=== PATIENT | female | born 1980 | race Caucasian/White ===

== ENCOUNTER 2022-03-16 14:32 | Outpatient (REF) | payer MEDICAID, SELFPAY ==
--- NOTE | ~2022-03-16 | XR_ITS ---
EXAMINATION: XR CHEST CLINICAL INFORMATION: R07.9 - Chest pain, unspecified COMPARISON: Chest radiographs 03/20/2020, 04/21/2012 TECHNIQUE: 2 views of the chest were obtained. FINDINGS: The lungs are clear. There is no pneumothorax, pleural reaction, airspace opacity, or effusion. The heart is normal in size. The hilar and mediastinal contours and bony structures are unremarkable. XR/XR chest 2V IMPRESSION: Unremarkable examination.
[2022-03-16 14:49] LABS: MANUAL DIFF FLAG NO
[2022-03-16 15:15] LABS: Basophils Percent Auto 0.3 % (0-2); Eosinophils Absolute Auto 0.1 X10*3/uL (0.0-0.4); Eosinophils Percent Auto 1.1 % (0-4); Hematocrit 38.4 % (37.0-47.0); Hemoglobin 12.9 g/dl (12.0-16.0); Imm Gran Abs Auto 0.02 X10*3/uL (0.00-0.03); Imm Gran Pct Auto 0.3 % (0.0-0.4); Lymphocytes Absolute Auto 1.9 X10*3/uL (1.2-4.9); Lymphocytes Percent Auto 25.3 % (20-40); Mean Corpuscular HGB Conc 33.6 g/dl (31.0-35.0); Mean Corpuscular Hemoglobin 31.2 pg (27.0-33.0); Mean Corpuscular Volume 92.8 fL (80.0-98.0); Mean Platelet Volume 10.8 fL (9.4-12.3); Monocytes Absolute Auto 0.4 X10*3/uL (0.1-1.2); Monocytes Percent Auto 5.9 % (2-11); Neutrophils Absolute Auto 4.9 x10*3/uL (2.0-8.3); Neutrophils Percent Auto 67.1 % (45-73); Platelet Count 317 X10*3/uL (160-400); Red Blood Count 4.14 X10*6/uL (4.20-5.50); Red Cell Distribution Width 12.5 % (11.0-16.0); White Blood Count 7.3 X10*3/uL (4.8-10.8)
[2022-03-16 15:24] LABS: D Dimer High Sensitivity < 150 NG/ML
[2022-03-16 15:47] LABS: Alanine Aminotransferase 16 U/L (0-31); Albumin Level 4.2 g/dL (3.5-5.0); Alkaline Phosphatase 39 U/L (39-117); Anion Gap 15 (12-20); Aspartate Amino Transferase 12 U/L (5-31); Bilirubin Direct 0.2 mg/dL (0.0-0.5); Bilirubin Total 0.6 mg/dL (0.0-1.0); Blood Urea Nitrogen 7 mg/dL (9-16); Calcium 9.7 mg/dL (8.4-10.2); Carbon Dioxide 23 mmol/L (22-29); Chloride 105 mmol/L (96-108); Estimated Glomerular Filt Rate > 60; Glucose Random 107 mg/dL (60-115); Potassium 4.2 mmol/L (3.3-5.1); Sodium 139 mmol/L (135-145); Total Protein 7.1 g/dL (6.5-8.0)
[2022-03-16 15:54] LABS: Erythrocyte Sedimentation Rate 12 MM/HR (0-20)
[2022-03-20 14:36] LABS: IgA 392 mg/dL (47-310); IgG 952 mg/dL (600-1640); IgM 91 mg/dL (50-300)
== END 2022-03-16 14:33 | disposition home or self-care (01) ==
LOC: HO.LAB 14:32
PROVIDERS: PCP Family Medicine; Visit Provider Hospitalist
DX: R07.9 Chest pain, unspecified (principal); J45.909 Unspecified asthma, uncomplicated; G47.33 Obstructive sleep apnea (adult) (pediatric)
CPT/HCPCS: 36415; 71046; 80048; 80076; 82784; 82785; 85025; 85379; 85652; 86003; 99202

== ENCOUNTER 2022-03-30 09:10 | Outpatient (REF) | payer MEDICAID, SELFPAY ==
--- NOTE | 2022-03-30 10:09 | PFT_ITS ---
Forced vital capacity 66%, FEV1 65%, BQS87-10 57%, and MVV 76%. Post bronchodilator therapy, there is a slight improvement in FVC and significant improvement in XXC36-38. Total lung capacity 81%. Residual volume 108%. Diffusion capacity 94%. CONCLUSION: There is evidence of fltv-ac-fuolppvb degree of obstructive airway disorder with good response to bronchodilator therapy. These findings are consistent with bronchial asthma. Clinical correlation recommended. MD LILI Vaca/MANNY / [id number]
== END 2022-03-30 09:11 | disposition home or self-care (01) ==
LOC: HO.RESP 09:10
PROVIDERS: PCP Family Medicine; Visit Provider Hospitalist
DX: J45.909 Unspecified asthma, uncomplicated (principal)
CPT/HCPCS: 94060; 94727; 94729; 95806

== ENCOUNTER 2022-04-20 07:33 | Outpatient (REF) | payer MEDICAID, SELFPAY ==
--- NOTE | ~2022-04-20 | CT_ITS ---
EXAMINATION: CT HEAD WITHOUT CONTRAST CLINICAL INFORMATION: 42-year-old with headaches. COMPARISON: 09/14/2006 CT is not available for comparison TECHNIQUE: Contiguous axial imaging was performed from the skull base to vertex without intravenous administration of contrast. This CT examination was performed using dose optimization techniques as appropriate, variously including the following: *Automated exposure control *Adjustment of mA and/or kV according to patient size (this includes techniques or standardized protocols for targeted exams where dose is matched to indication/reason for exam; i.e. extremities or head) *Use of iterative reconstruction technique DLP: 821 mGy-cm FINDINGS: Brain Volume: Within normal limits in appearance within the limitations of a qualitative assessment. Structural: No malformations. Brain and Meninges: The brain is normal in morphology and attenuation. There is no evidence for infarction, hemorrhage, extra-axial fluid collection, space-occupying process or mass effect. De La Rosa-white matter differentiation is intact. Ganglionic structures and brainstem appear grossly intact when accounting for artifacts at the skull base. Ventricles and Subarachnoid Spaces: The ventricular system and subarachnoid spaces are within normal limits without hydrocephalus. Orbital Structures: Grossly unremarkable within the limitations of the study. Osseous Structures, Sinuses/Mastoids, Extracranial Soft Tissues: Unremarkable CT/CT head/brain wo IV con IMPRESSION: Unremarkable noncontrast CT of the brain. No acute intracranial process identified.
== END 2022-04-20 07:34 | disposition home or self-care (01) ==
LOC: HO.CT 07:33
PROVIDERS: PCP Family Medicine; Visit Provider Family Medicine
DX: R51.9 Headache, unspecified (principal)
CPT/HCPCS: 70450

== ENCOUNTER → 2022-06-16 15:02 | Outpatient (BNVA) | payer MEDICAID, SELFPAY | PROVIDERS: PCP Family Medicine; Visit Provider Hospitalist | DX: J45.909 Unspecified asthma, uncomplicated (principal); R07.9 Chest pain, unspecified; G47.33 Obstructive sleep apnea (adult) (pediatric) | CPT/HCPCS: 99212 ==

== ENCOUNTER 2022-08-04 09:47 | Outpatient (REF) | payer MEDICAID, SELFPAY ==
--- NOTE | ~2022-08-04 | XR_ITS ---
EXAMINATION: XR CHEST CLINICAL INFORMATION: Pneumonia. COMPARISON: None TECHNIQUE: 2 views of the chest were obtained. XR/XR chest 2V FINDINGS/IMPRESSION: The study is somewhat limited by suboptimal inspiration. Questionable subtle bibasilar densities on frontal view are not supported bilateral view, and therefore are felt more likely to represent atelectasis and/or overlapping normal anatomical structures rather than acute infiltrate. Recommend clinical correlation and follow-up as clinically indicated. No consolidation, effusion, pneumothorax, or adenopathy is seen. The cardiovascular structures, mediastinum, diaphragm, bones, and soft tissues appear unremarkable. Suspect cholecystectomy.
== END 2022-08-04 09:48 | disposition home or self-care (01) ==
LOC: HO.XRAY 09:47
PROVIDERS: PCP Family Medicine; Visit Provider Hospitalist
DX: J18.9 Pneumonia, unspecified organism (principal); R07.9 Chest pain, unspecified; G47.33 Obstructive sleep apnea (adult) (pediatric); J45.909 Unspecified asthma, uncomplicated
CPT/HCPCS: 71046; 99212

== ENCOUNTER → 2022-10-08 13:48 | Outpatient (BNVA) | payer MEDICAID, SELFPAY | PROVIDERS: PCP Family Medicine; Visit Provider Hospitalist | DX: J45.909 Unspecified asthma, uncomplicated (principal); R07.9 Chest pain, unspecified; G47.33 Obstructive sleep apnea (adult) (pediatric); Z23 Encounter for immunization | CPT/HCPCS: 90471; 90677; 99212 ==

== ENCOUNTER 2023-01-15 16:08 | Outpatient (REF) | payer MEDICAID, SELFPAY ==
[2023-01-16 13:19] LABS: H Pylori Breath Test Negative (Negative)
== END 2023-01-15 16:09 | disposition home or self-care (01) ==
LOC: HO.HHCLNP 16:08
PROVIDERS: Visit Provider Family Medicine
DX: K21.9 Gastro-esophageal reflux disease without esophagitis (principal)
CPT/HCPCS: 36415; 83013

== ENCOUNTER 2023-01-18 11:47 | Outpatient (REF) | payer MEDICAID, SELFPAY ==
[2023-01-18 13:17] LABS: MANUAL DIFF FLAG NO
[2023-01-18 13:52] LABS: Basophils Percent Auto 0.5 % (0-2); Eosinophils Absolute Auto 0.1 X10*3/uL (0.0-0.4); Hematocrit 40.3 % (37.0-47.0); Hemoglobin 13.6 g/dl (12.0-16.0); Imm Gran Abs Auto 0.02 X10*3/uL (0.00-0.03); Imm Gran Pct Auto 0.3 % (0.0-0.4); Lymphocytes Absolute Auto 1.9 X10*3/uL (1.2-4.9); Lymphocytes Percent Auto 31.1 % (20-40); Mean Corpuscular HGB Conc 33.7 g/dl (31.0-35.0); Mean Corpuscular Hemoglobin 31.1 pg (27.0-33.0); Mean Corpuscular Volume 92.2 fL (80.0-98.0); Mean Platelet Volume 11.1 fL (9.4-12.3); Monocytes Absolute Auto 0.3 X10*3/uL (0.1-1.2); Monocytes Percent Auto 5.4 % (2-11); Neutrophils Absolute Auto 3.7 x10*3/uL (2.0-8.3); Neutrophils Percent Auto 60.7 % (45-73); Platelet Count 422 X10*3/uL (160-400); Red Blood Count 4.37 X10*6/uL (4.20-5.50); Red Cell Distribution Width 12.5 % (11.0-16.0); White Blood Count 6.2 X10*3/uL (4.8-10.8)
[2023-01-18 14:18] LABS: Estimated Average Glucose 97 mg/dL
[2023-01-18 14:39] LABS: Syphilis Screen Nonreactive (Nonreactive)
[2023-01-18 14:40] LABS: Alanine Aminotransferase 20 U/L (0-31); Albumin Level 4.5 g/dL (3.5-5.0); Alkaline Phosphatase 42 U/L (39-117); Anion Gap 11 (12-20); Aspartate Amino Transferase 15 U/L (5-31); Bilirubin Direct 0.3 mg/dL (0.0-0.5); Blood Urea Nitrogen 9 mg/dL (9-16); Calcium 9.6 mg/dL (8.4-10.2); Carbon Dioxide 26 mmol/L (22-29); Chloride 106 mmol/L (96-108); Cholesterol 203 mg/dL; Estimated Glomerular Filt Rate > 60; Glucose Random 101 mg/dL (60-115); HDL Cholesterol 41 mg/dL; LDL Cholesterol Calculated 137 mg/dl; Potassium 3.4 mmol/L (3.3-5.1); Sodium 140 mmol/L (135-145); Total Protein 7.8 g/dL (6.5-8.0); Triglycerides 129 mg/dL
[2023-01-18 14:46] LABS: Free T4 (Free Thyroxine) 0.95 ng/dL (0.71-1.85); Thyroid Stimulating Hormone 1.25 uIU/mL (0.32-4.0); Vitamin D 25-OH Total 21.9 ng/mL (>30)
[2023-01-18 16:58] LABS: Creatinine Urine 263.15 mg/dL; Microalbum/Creatinine Ratio Ur 14.4 ug/mg cr
[2023-01-18 17:57] LABS: CT PCR NOT DETECTED (Not Detect.); NG PCR NOT DETECTED (Not Detect.)
[2023-01-19 06:04] LABS: ~Hepatitis C Antibody Nonreactive (Nonreactive)
[2023-01-19 06:05] LABS: HBS Num1 4.07 mIU/mL (0-7.99); HBsAGNum1 0.45 S/CO (0.00-0.99); HIV AB/AG Nonreactive (Nonreactive); HIV Num 1 0.06 S/CO (0.00-0.99); Hepatitis B Surface Antigen Negative (Negative); ~Hepatitis B Surface Antibody NONREACTIVE (Nonreactive)
== END 2023-01-18 11:48 | disposition home or self-care (01) ==
LOC: HO.HHCL 11:47
PROVIDERS: Visit Provider Family Medicine
DX: Z11.4 Encounter for screening for human immunodeficiency virus [HIV] (principal); Z11.3 Encounter for screening for infections with a predominantly sexual mode of transmission; I10 Essential (primary) hypertension
CPT/HCPCS: 0353U; 80048; 80061; 80076; 82043; 82306; 83036; 84439; 84443; 85025; 86706; 86780; 86803; 87340; 87389

== ENCOUNTER 2023-02-16 11:22 | Outpatient (REF) | payer MEDICAID, SELFPAY | END 2023-02-16 11:23 | disposition home or self-care (01) | LOC: HO.MAMMO 11:22 | PROVIDERS: PCP Family Medicine; Visit Provider Family Medicine | DX: Z12.31 Encounter for screening mammogram for malignant neoplasm of breast (principal) | CPT/HCPCS: 77063; 77067 ==

== ENCOUNTER → 2023-02-16 11:45 | Outpatient (BNV) | payer MEDICAID, SELFPAY | PROVIDERS: PCP Family Medicine; Visit Provider Radiology Diagnostic Radiology | DX: Z12.31 Encounter for screening mammogram for malignant neoplasm of breast (principal) | CPT/HCPCS: 77063; 77067 ==

== ENCOUNTER 2023-04-12 13:51 | Outpatient (AMB) | payer MEDICAID, SELFPAY ==
[2023-04-12 13:51] VITALS: BMI 41.3
--- NOTE | 2023-04-12 13:51 | MHC.OFFVIS ---
Intake Vital Signs 04/12/23 13:51 Height 5 ft 9 in Weight 280 lb BMI 41.3 Intake Visit Reasons: Asthma follow-up Optical Scientist Required: No Allergies Seafood Allergy (Severe, Uncoded 04/12/23 13:52) DIFFICULTY BREATHING HPI HPI Comments History of Present Illness Details The patient is a 42-year-old woman with known lifelong asthma. As a child she had been admitted to the hospital with asthma. she had been evaluated at [facility] until 2019. after that she was referred to [facility]. The patient was supposed to undergo pulmonary function studies and also sleep study but were never done. She continues on Symbicort. She continued to have with symptoms requirements short-acting beta agonist. Will lost several months she has required 4 courses of prednisone for asthma exacerbations. Ultimately she was placed on Flovent to increasing hold steroids. Although she still feels chest tightness and shortness of breath cough. He also has underlying allergies. We did review blood work at [place] she had back 2019 was read significant allergies to dust mites. Her eosinophils have been normal at that time. At some point she also had eczema but that has improved. She does have nasal congestion with postnasal drip. The patient does complaint daytime drowsiness. She has increased waking as well she does have snoring documented. The patient was supposed to undergo sleep study in the past but was never scheduled for her. Therefore will go ahead and schedule a home sleep study at this time. As far as pulmonary function studies she states that she was having them done and then they were stopped and she never understood why and they were not completed. Also to note the patient has been describing all right-sided chest discomfort close to the right upper quadrant area. It is not pleuritic. He has not her 1st her lung. She has also had let swelling and pain behind the knee. Therefore will go ahead and request a D-dimer. 06/16/2022 the patient is here for a pulmonary follow-up visit. She continues to have her asthma symptoms. Her asthma continues to be uncontrolled. She has daytime chest tightness and wheezing, moderate severity. She does use her rescue inhaler on a daily basis. Unfortunately, the breztri inhaler was not covered. Therefore she continues use her Symbicort. Will go ahead and switch over to Trelegy. hopefully we can maximize her respiratory Medications. In addition to that the patient did have allergy testing demonstrating elevations in the IgE and significant allergies specially to dust mites and other environmental factors. The patient may benefit from biologic therapy if she continues to be symptomatic on maximum therapy. She did undergo pulmonary function studies which we personally reviewed. Demonstrating small airways disease consistent with her asthma. In addition to that she continues to have some daytime drowsiness. Her Keeling score is elevated 7/24. She did have a home sleep study demonstrating no significant evidence of sleep apnea. Explained to the patient the studies are not perfect. If her daytime drowsiness was to worsen or she develops any other cardiovascular risk factors we can consider an in-lab sleep study. At this moment will hold off and she can try positional therapy. 08/04/2022 the patient is here for pulmonary follow-up visit. She was briefly hospitalized at [facility] after finding out she had a right middle lobe pneumonia. The patient was given antibiotics and she is feeling better. She has less congestion. Although, she continues to have right-sided chest discomfort. Will go ahead and repeat an x-ray today. We did send inhalers to the pharmacy. However, she could not get the Trelegy or the breast recovered. Therefore she has been use using Incruse. Explained to her that increase should not be used prior cell specially with her degree of asthma. Therefore, can restart Symbicort and continue the Incruse. She does state that the Incruse initially makes her feel a little winded. I will have her restart the Incruse after she takes her Symbicort with hopes that that will provide her some relief. If she continues to have that discomfort she is to stop the Incruse. She is concerned about using prednisone. We did review her allergy testing. She does have an elevated IgE. If she does not respond to the optimize respiratory therapy and if she continues use prednisone for frequent exacerbations then starting Xolair may be an option for her. Her eosinophils are normal. She does have significant allergies based on her RAST. 04/12/2023 the patient has a telehealth visit today. The patient is complaining again of right-sided chest discomfort. Similar to when she was admitted to the hospital with pneumonia. She is having some increased chest congestion and cough. She denies any fevers or chills. She has not tested for COVID. I did advise her to do so. She did have prodromal symptoms prior to this suggesting the possibility of a postviral bacterial infection. She continues use her respiratory therapy. Will go ahead and start her on antibiotic therapy for presumption of lower respiratory infection. Patient also undergo a chest x-ray. She is having some pleuritic discomfort as well [id number]. I did advise her to go to the ER but the patient is concerned. Therefore, if the patient is not better and 20-48 hours after starting the therapy or if she worsens she will need to go to the ER for further care. [facility] Medical History (Updated 04/12/23 @ 14:01 by Nnamdi Kemp MD) Pneumonia Chronic allergic rhinitis Asthma Social History (Updated 03/16/22 @ 13:54 by LUKE oJlley) Patient Tobacco Use Status: Never used Tobacco Review of Systems Const Reports daytime sleepiness, Reports headache(s), Reports snoring and Reports weight gain Eyes Denies change in vision and Denies itchy eyes ENT Reports headache(s), Denies lip swelling, Reports nasal congestion, Reports nasal discharge and Denies throat swelling Card Reports chest pain Resp Reports cough, Denies pain on inspiration, Denies pain with cough, Reports snoring and Reports wheezing GI Reports no additional complaints Musc Reports joint swelling Skin/Breast Denies rash Neuro Reports no additional complaints and Reports headache(s) Garrison/Lymph Denies easy bleeding and Denies easy bruising Aller/Immun Denies urticaria, Denies itchy eyes, Denies lip swelling, Reports seasonal rhinorrhea, Denies throat swelling and Reports wheezing Physical Exam Vital Signs: BMI result Body Mass Index 41.3 Const General: comfortable Orientation/consciousness: patient oriented x3 Resp Effort & Inspection: able to speak in complete sentences Neuro General: patient oriented x3 Assessment & Plan Assessment & Plan (1) Pneumonia: Code(s): J18.9 - Pneumonia, unspecified organism Qualifiers: Laterality: right Lung location: middle lobe of lung Pneumonia type: due to unspecified organism Qualified Code(s): J18.9 - Pneumonia, unspecified organism (2) Asthma: Code(s): J45.909 - Unspecified asthma, uncomplicated Qualifiers: Asthma complication type: uncomplicated Asthma persistence: persistent Asthma severity: moderate Qualified Code(s): J45.40 - Moderate persistent asthma, uncomplicated (3) Chest pain: Code(s): R07.9 - Chest pain, unspecified Qualifiers: Chest pain type: chest pain on breathing Qualified Code(s): R07.1 - Chest pain on breathing (4) K[place] (obstructive sleep apnea): Code(s): G47.33 - Obstructive sleep apnea (adult) (pediatric) (5) Chronic allergic rhinitis: Code(s): J30.9 - Allergic rhinitis, unspecified Plan continue Incruse start breo continue singular continue Claritin CXR strat Doxy/vantin prednisone taper Will need to go to the ED if no better in 24-48 hours, or sooner if worsens Consider Biologic therapy if still symptomatic. based on her blood work and her phenotype likely Xolair will be a good option for her EpiPen due to her allergies to Bees follow-up in 6-8 weeks Orders: Orders XR chest 2V Today J18.9 - Pneumonia, unspecified organism Medications: New prednisone Take 2 tabs daily x 5 days, then 1 tablet daily x 5 days 20 mg PO DAILY 10 days 15 tabs 0RF fluticasone furoate-vilanterol 200-25 mcg/dose (Breo Ellipta) 1 inh inhalation DAILY 30 days 60 ea 11RF J45.909 - Unspecified asthma, uncomplicated cefpodoxime must administer with a meal/food 200 mg PO BID 20 tabs 0RF doxycycline hyclate 100 mg PO BID 10 days 20 caps 0RF Discontinued lburkusqfa-jsohbtzo-urdehcdqdp 160-9-4.8 mcg/actuation (Breztri Aerosphere) Discontinued Reason: None 2 inhalations inhalation BID 30 days 10.7 grams 11RF Telehealth Telehealth Location of provider rendering services: practice address Location of patient: address on file Patient Identification confirmed using: Name, : Yes Telehealth method: voice only Patient verbally consented to treatment: Yes Patient verbally consented to billing insurance company: Yes Patient informed of any privacy concerns related to visit: Yes Coding Level of Care Code Tele Est Pt Level 4 (44458) Diagnoses Pneumonia of right middle lobe due to infectious organism J18.9 Laterality: right Lung location: middle lobe of lung Pneumonia type: due to unspecified organism Moderate persistent asthma without complication J45.40 Asthma complication type: uncomplicated Asthma persistence: persistent Asthma severity: moderate Chest pain on breathing R07.1 Chest pain type: chest pain on breathing K[place] (obstructive sleep apnea) G47.33 Chronic allergic rhinitis J30.9 Time Spent (min) 15
== END 2023-04-12 14:17 | disposition home or self-care (01) ==
LOC: HO.HPS 13:51
PROVIDERS: PCP Family Medicine; Visit Provider Hospitalist
DX: J18.9 Pneumonia, unspecified organism (principal); J45.40 Moderate persistent asthma, uncomplicated; R07.1 Chest pain on breathing; G47.33 Obstructive sleep apnea (adult) (pediatric); J30.9 Allergic rhinitis, unspecified
CPT/HCPCS: 99214

== ENCOUNTER → 2023-04-12 13:51 | Outpatient (BNVA) | payer MEDICAID, SELFPAY | PROVIDERS: PCP Family Medicine; Visit Provider Hospitalist ==

== ENCOUNTER 2023-08-06 14:20 | Outpatient (AMB) | payer MEDICAID, SELFPAY ==
--- NOTE | 2023-08-06 14:37 | A.OFFVIS_ITS ---
Intake Vital Signs 08/06/23 14:38 Height 5 ft 9 in Weight 200 lb BMI 29.5 Pulse 87 Pulse Source Pulse Oximeter Pulse Oximetry (%) 99 Oxygen Delivery Method Room Air Intake Visit Reasons: Asthma follow-up Allergies Seafood Allergy (Severe, Uncoded 08/06/23 14:40) DIFFICULTY BREATHING HPI HPI Comments History of Present Illness Details The patient is a 43-year-old woman with known lifelong asthma. As a child she had been admitted to the hospital with asthma. she had been evaluated at [facility] until 2019. after that she was referred to [facility]. The patient was supposed to undergo pulmonary function studies and also sleep study but were never done. She continues on Symbicort. She continued to have with symptoms requirements short-acting beta agonist. Will lost several months she has required 4 courses of prednisone for asthma exacerbations. Ultimately she was placed on Flovent to increasing hold steroids. Although she still feels chest tightness and shortness of breath cough. He also has underlying allergies. We did review blood work at [place] she had back 2019 was read significant allergies to dust mites. Her eosinophils have been normal at that time. At some point she also had eczema but that has improved. She does have nasal congestion with postnasal drip. The patient does complaint daytime drowsiness. She has increased waking as well she does have snoring documented. The patient was supposed to undergo sleep study in the past but was never scheduled for her. Therefore will go ahead and schedule a home sleep study at this time. As far as pulmonary function studies she states that she was having them done and then they were stopped and she never understood why and they were not completed. Also to note the patient has been describing all right-sided chest discomfort close to the right upper quadrant area. It is not pleuritic. He has not her 1st her lung. She has also had let swelling and pain behind the knee. Therefore will go ahead and request a D-dimer. 06/16/2022 the patient is here for a pulmonary follow-up visit. She continues to have her asthma symptoms. Her asthma continues to be uncontrolled. She has daytime chest tightness and wheezing, moderate severity. She does use her rescue inhaler on a daily basis. Unfortunately, the breztri inhaler was not covered. Therefore she continues use her Symbicort. Will go ahead and switch over to Trelegy. hopefully we can maximize her respiratory Medications. In addition to that the patient did have allergy testing demonstrating elevations in the IgE and significant allergies specially to dust mites and other environmental factors. The patient may benefit from biologic therapy if she continues to be symptomatic on maximum therapy. She did undergo pulmonary function studies which we personally reviewed. Demonstrating small airways disease consistent with her asthma. In addition to that she continues to have some daytime drowsiness. Her Shenandoah score is elevated 7/24. She did have a home sleep study demonstrating no significant evidence of sleep apnea. Explained to the patient the studies are not perfect. If her daytime drowsiness was to worsen or she develops any other cardiovascular risk factors we can consider an in-lab sleep study. At this moment will hold off and she can try positional therapy. 08/04/2022 the patient is here for pulmona ry follow-up visit. She was briefly hospitalized at [facility] after finding out she had a right middle lobe pneumonia. The patient was given antibiotics and she is feeling better. She has less congestion. Although, she continues to have right-sided chest discomfort. Will go ahead and repeat an x-ray today. We did send inhalers to the pharmacy. However, she could not get the Trelegy or the breast recovered. Therefore she has been use using Incruse. Explained to her that increase should not be used prior cell specially with her degree of asthma. Therefore, can restart Symbicort and continue the Incruse. She does state that the Incruse initially makes her feel a little winded. I will have her restart the Incruse after she takes her Symbicort with hopes that that will provide her some relief. If she continues to have that discomfort she is to stop the Incruse. She is concerned about using prednisone. We did review her allergy testing. She does have an elevated IgE. If she does not respond to the optimize respiratory therapy and if she continues use prednisone for frequent exacerbations then starting Xolair may be an option for her. Her eosinophils are normal. She does have significant allergies based on her RAST. 04/12/2023 the patient has a telehealth visit today. The patient is complaining again of right-sided chest discomfort. Similar to when she was admitted to the hospital with pneumonia. She is having some increased chest congestion and cough. She denies any fevers or chills. She has not tested for COVID. I did advise her to do so. She did have prodromal symptoms prior to this suggesting the possibility of a postviral bacterial infection. She continues use her respiratory therapy. Will go ahead and start her on antibiotic therapy for presumption of lower respiratory infection. Patient also undergo a chest x-ray. She is having some pleuritic discomfort as well [id number]. I did advise her to go to the ER but the patient is concerned. Therefore, if the patient is not better and 20-48 hours after starting the therapy or if she worsens she will need to go to the ER for further care. 08/06/2023 the patient is here for a pulmonary follow-up has been complaining of significant lower extremity edema. It has become very difficult for her to work as she is always on her feet. Her legs are swollen but also her she was on bedding. She has been on blood pressure medications including amlodipine. She will look into coming off the calcium channel subhash in view of the significant edema. The patient does not use diuretics. She may benefit some short term diuretics try to help her with the situation. She also complains significant daytime drowsiness. Her Shenandoah score is elevated 05/21. The patient does have cardiovascular risk factors. I will request a home sleep study this time. The asthma standpoint the patient appears to be stable. She is using the Incruse and Breo. Sometimes it is difficult for her to take both inhalers. Will be more efficient for her to be on Trelegy and therefore her better adherence to the medication. [facility] Medical History (Updated 08/08/23 @ 22:06 by Nnamdi Kemp MD) Leg edema Pneumonia Chronic allergic rhinitis Asthma Social History (Updated 03/16/22 @ 13:54 by LUKE Jolley) Patient Tobacco Use Status: Never used Tobacco Review of Systems Const Reports daytime sleepiness, Reports headache(s), Reports snoring and Reports weight gain Eyes Denies change in vision and Denies itchy eyes ENT Reports headache(s), Denies lip swelling, Reports nasal congestion, Reports natalia al discharge and Denies throat swelling Card Reports chest pain Resp Reports cough, Denies pain on inspiration, Denies pain with cough, Reports snoring and Reports wheezing GI Reports no additional complaints Musc Reports joint swelling Skin/Breast Denies rash Neuro Reports no additional complaints and Reports headache(s) Garrison/Lymph Denies easy bleeding and Denies easy bruising Aller/Immun Denies urticaria, Denies itchy eyes, Denies lip swelling, Reports seasonal rhinorrhea, Denies throat swelling and Reports wheezing Physical Exam Vital Signs: Last Vital Signs Pulse 87 08/06/23 14:38 Pulse Ox 99 08/06/23 14:38 Oxygen Delivery Method Room Air 08/06/23 14:38 BMI result Body Mass Index 29.5 Const General: comfortable HEENT Head: Yes normal to inspection Eyes General: appearance normal, both eyes and all related structures Neck Neck: Yes supple Chest Chest palpation & inspection: normal inspection of the chest Resp Auscultation: no crackles, no rales, no rhonchi, no wheezes and diminished lung sounds Cardio Rate: regular rate Rhythm: regular rhythm Heart sounds: S1 normal heart sound present, S2 normal heart sound present and Murmur heart sound present systolic early, soft and at the right sternal border GI Auscultation: normal bowel sounds Skin General skin exam: no rashes or lesions noted Extrem General: No clubbing, No cyanosis and Yes edema Assessment & Plan Assessment & Plan (1) Pneumonia: Code(s): J18.9 - Pneumonia, unspecified organism Qualifiers: Laterality: right Lung location: middle lobe of lung Pneumonia type: due to unspecified organism Qualified Code(s): J18.9 - Pneumonia, unspecified organism (2) Asthma: Code(s): J45.909 - Unspecified asthma, uncomplicated Qualifiers: Asthma complication type: uncomplicated Asthma persistence: persistent Asthma severity: moderate Qualified Code(s): J45.40 - Moderate persistent asthma, uncomplicated (3) Chest pain: Code(s): R07.9 - Chest pain, unspecified Qualifiers: Chest pain type: chest pain on breathing Qualified Code(s): R07.1 - Chest pain on breathing (4) [place] (obstructive sleep apnea): Code(s): G47.33 - Obstructive sleep apnea (adult) (pediatric) (5) Chronic allergic rhinitis: Code(s): J30.9 - Allergic rhinitis, unspecified (6) Leg edema: Code(s): R60.0 - Localized edema Plan stop Incruse stop breo start Trelegy 200 continue singular continue Claritin LASHAY as needed Consider Biologic therapy if still symptomatic. based on her blood work and her phenotype likely Xolair will be a good option for her EpiPen due to her allergies to Bees lasix x 3 days should discuss with PCP regarding stopping the Norvasc due to significant LE edema follow-up in 3-4 months Orders: Orders RT home sleep study 08/06/23 G47.33 - Obstructive sleep apnea (adult) (pediatric) Medications: New furosemide (Lasix) 20 mg PO DAILY 7 days 7 tabs 0RF ojjcooatfch-tyauzexqb-fwjxzoaa 200-62.5-25 mcg (Trelegy Ellipta) 1 inh inhalation DAILY 30 days 60 ea 12RF Coding Level of Care Code Est Pt Level 4 (81050) Diagnoses Pneumonia of right middle lobe due to infectious organism J18.9 Laterality: right Lung location: middle lobe of lung Pneumonia type: due to unspecified organism Moderate persistent asthma without complication J45.40 Asthma complication type: uncomplicated Asthma persistence: persistent Asthma severity: moderate Chest pain on breathing R07.1 Chest pain type: chest pain on breathing [place] (obstructive sleep apnea) G47.33 Chronic allergic rhinitis J30.9 Leg edema R60.0 Time Spent (min) 18
[2023-08-06 14:38] VITALS: PULSE 87; O2SAT 99; BMI 29.5
== END 2023-08-06 14:58 | disposition home or self-care (01) ==
PROVIDERS: PCP Family Medicine; Referring Provider Family Medicine; Visit Provider Hospitalist
DX: J18.9 Pneumonia, unspecified organism (principal); J45.40 Moderate persistent asthma, uncomplicated; R07.1 Chest pain on breathing; G47.33 Obstructive sleep apnea (adult) (pediatric); J30.9 Allergic rhinitis, unspecified; R60.0 Localized edema
CPT/HCPCS: 99214

== ENCOUNTER → 2023-08-06 14:20 | Outpatient (BNVA) | payer MEDICAID, SELFPAY | PROVIDERS: PCP Family Medicine; Visit Provider Hospitalist | DX: J45.40 Moderate persistent asthma, uncomplicated (principal); J18.9 Pneumonia, unspecified organism; J30.9 Allergic rhinitis, unspecified; R07.1 Chest pain on breathing; R60.0 Localized edema; G47.33 Obstructive sleep apnea (adult) (pediatric) | CPT/HCPCS: 99212 ==

== ENCOUNTER 2023-08-11 10:47 | Outpatient (AMB) | payer MEDICAID, SELFPAY ==
[2023-08-11 10:56] VITALS: BP 113/72; PULSE 84; BMI 41.4
--- NOTE | 2023-08-11 10:56 | A.OFFVIS_ITS ---
Intake Vital Signs 3 08/11/23 10:56 Height 5 ft 9 in Weight 280 lb 6.848 oz BMI 41.4 BP 113/72 Blood Pressure Location Rt brachial Position Sitting Pulse 84 Intake Visit Reasons: Chronic GERD Intake Note: Adelaide presents in office today as a new patient for chronic GERD. CC: Patient c/o GERD for about 5 years. She is currently taking Omeprazole 20 mg BID and this is the only thing that helps with symptoms. She also c/o constipation and states that she had a colonoscopy and EGD done 2 years ago at [facility]. Per patient she was found to have polyps that were removed, diverticulosis, and an ulcer. Allergies seafood Allergy (Severe, Verified 08/11/23 11:13) Anaphylaxis hydrochlorothiazide Adverse Reaction (Intermediate, Verified 08/11/23 11:13) HYPOKALEMIA HPI Chronic GERD 2 HPI0 Details 43-year-old female here for initial eval uation of GERD. She is referred by Maday Albarran of [facility]. PMX Obesity [place] Hypertension Asthma Allergic rhinitis Constipation Vertigo * SURGICAL HISTORY EGD/colonoscopy 2010 [facility] Appendectomy cholecystectomy - 14 years ago Hysterectomy Dermal and breast cysts * ALLERGIES HCTZ-hypokalemia Shrimp - anaphylaxis * [place] LABS: Laboratory Tests 01/18/23 11:54 WBC 6.2 Hgb 13.6 Hct 40.3 MCV 92.2 Plt Count 422 H D Estimated GFR > 60 Hemoglobin A1c % 5.0 Total Bilirubin 1.0 Direct Bilirubin 0.3 AST 15 ALT 20 Alkaline Phosphata se 42 TSH 1.25 Free T4 0.95 TODAY'S VISI She has had trouble with GERD for 6-7 years but it is worsening over the past year. She has gaining weight, 80lbs over the past year. She does not think she has been overeating and no other condition like , depression etc. She also struggles with CIC throughout her life. She is tried dressing constipation with all of the vqbc-olh-sszulfvl including MiraLax, senna, Colace, Dulcolax, fiber, and even prunes! Sometimes they work but more frequently they do not. She sometimes will go 3 or 4 days without moving her bowels sometimes the very hard but frequently she will pass very small pellets. At times she will experience epigastric pain with heartburn, and at times with the constipation she will have some right lower quadrant discomfort. Her mother also suffers constipation and heartburn. Her mother sadly, of colon cancer at age 47. She has been having colonoscopies through [facility] her last appears to likely have been in April of 2021 and she had polyps removed. She also had an endoscopy at that time that showed some ringing and ridging of the esophagus but no other severe pathology. (? Feline esophagus? ) I was unable to find the colonoscopy with the biopsy report in the [facility] database to see how many polyps with a grade. Clearly we need to establish better GI motility to control her GERD, and also to keep her from developing any sort of bowel complications similar to her mother's. However, she does not seem to have any hernia so this is encouraging. She is probably prone to diverticulitis given her constipation. ROV 3 weeks to evaluate the increased omeprazole dose and Linzess 145mcg. PFSH Medical History Leg edema Pneumonia Chronic allergic rhinitis Asthma Surgical History History of esophagogastroduodenoscopy (EGD) H/O colonoscopy S/P breast lumpectomy S/P cholecystectomy History of appendectomy Family History Mother Colon cancer Maternal Grandfather Colon cancer Maternal Uncle Colon cancer Maternal Uncle Colon cancer Father Heart disease Kidney failure Paternal Aunt Pacemaker Paternal Grandmother Heart disease Pacemaker Social History Alcohol intake: never Patient Tobacco Use Status: Never used Tobacco Review of Systems Const Denies fatigue, Denies fever(s), Denies night sweats, Denies poor appetite, Reports weight gain and Denies weight loss ENT Reports Normal hearing present, Denies dental pain, Denies dysphagia, Denies hearing loss, Denies mouth pain, Denies odynophagia, Denies throat swelling, Denies tongue swelling and Reports other (Dentition adequate) Card Reports no additional complaints Resp Reports no additional complaints GI Details: Reports abdominal pain, Denies melena, Denies bloating, Denies hematochezia, Reports constipation, Denies GI cramping, Denies dysphagia, Denies excessive flatus, Denies early satiety, Reports dyspepsia, Reports heartburn, Denies diarrhea, Denies nausea, Denies odynophagia, Denies vomiting and Denies hematemesis Skin/Breast Denies pruritus, Denies lesions, Denies rash and Denies jaundice Neuro Reports Normal hearing present and Denies Abnormal speech present Endo Denies fatigue Aller/Immun Denies throat swelling and Denies tongue swelling Physical Exam Vital Signs: Last Vital Signs Pulse 84 08/11/23 10:56 BP 113/72 08/11/23 10:56 BMI result Body Mass Index 41.4 Const General: cooperative, no acute distress, well developed and well groomed Nutritional Appearance: well nourished and obese morbidly obese Orientation/consciousness: oriented to person, oriented to place and oriented to time Limitations: No language barrier HEENT Head: Yes normocephalic and Yes atraumatic Eyes General: appearance normal, both eyes and all related structures Pupils: Equal, round and reactive pupils present Neck Neck: Yes normal visual inspection and Yes no lymphadenopathy Thyroid: Thyroid normal Resp Effort & Inspection: normal respiratory effort and able to speak in complete sentences Auscultation: clear to auscultation bilaterally Cardio Rate: regular rate Rhythm: regular rhythm Heart sounds: Normal, physiologic split S2 sound present Peripheral pulses: radial pulses present and posterior tibial pulses present GI Inspection: No distended, Yes Abdominal panniculus present, Yes obesity, Yes scar and Yes striae Palpation (GI): Soft to palpation, nontender, no guarding, not rigid and No hepatosplenomegaly present Percussion: Yes normal to percussion Auscultation: normal bowel sounds Rectal Exam - Female: deferred Abdomen image: 2 1. Surgical scars 2. 3. Skin General skin exam: no rashes or lesions noted, dry skin, no jaundice, No spider nevi and no striae Rashes: no rashes Nails: normal Neuro General: oriented to person, oriented to place and oriented to time Cranial nerves: Yes Equal, round and reactive pupils present and Yes Normal hearing present Speech: No Abnormal speech present Extrem General: Yes normal to inspection, No clubbing, No cyanosis and No edema Psych Appearance: grossly normal and well kempt Mental Status: mental status grossly normal Speech and movement: Normal speech and movement present Affect: normal affect Attitude: cooperative Thought process: Normal thought process present and not confabulating Thought content: Normal thought content present Insight: Limited insight present (Psych) Judgement: Limited judgement present (Psych) Assessment & Plan Assessment & Plan (1) GERD (gastroesophageal reflux disease): Code(s): K21.9 - Gastro-esophageal reflux disease without esophagitis (2) Constipation: Code(s): K59.00 - Constipation, unspecified (3) Weight gain: Code(s): R63.5 - Abnormal weight gain (4) Leg edema: Code(s): R60.0 - Localized edema Plan She has had trouble with GERD for 6-7 years but it is worsening over the past year. She has gaining weight, 80lbs over the past year. She does not think she has been overeating and no other condition like , depression etc. She also struggles with CIC throughout her life. She is tried dressing constipation with all of the [id number]-[id number] including MiraLax, senna, Colace, Dulcolax, fiber, and even prunes! Sometimes they work but more frequently they do not. She sometimes will go 3 or 4 days without moving her bowels sometimes the very hard but frequently she will pass very small pellets. At times she will experience epigastric pain with heartburn, and at times with the constipation she will have some right lower quadrant discomfort. Her mother also suffers constipation and heartburn. Her mother sadly, of colon cancer at age 47. She has been having colonoscopies through [facility] her last appears to likely have been in April of 2021 and she had polyps removed. She also had an endoscopy at that time that showed some ringing and ridging of the esophagus but no other severe pathology. (? Feline esophagus? ) I was unable to find the colonoscopy with the biopsy report in the [facility] database to see how many polyps with a grade. Clearly we need to establish better GI motility to control her GERD, and also to keep her from developing any sort of bowel complications similar to her mother's. However, she does not seem to have any hernia so this is encouraging. She is probably prone to diverticulitis given her constipation. The GERD is likely a combination of genetic factors and weight gain. Because of the severe weight gain I am going to get some basic labs and a thyroid test. Going forward I will consider if we want to barium swallow, I really like to get the EGD report from [facility] but could consider repeating this. ROV 3 weeks to evaluate the increased omeprazole dose and Linzess 145mcg. Orders: Orders 2 Comprehensive Met. Panel Today K59.00 - Constipation, unspecified, R60.0 - Localized edema, R63.5 - Abnormal weight gain Complete Blood Count Auto Diff Today K59.00 - Constipation, unspecified, R60.0 - Localized edema, R63.5 - Abnormal weight gain TSH reflex Free T4 Today K59.00 - Constipation, unspecified, R60.0 - Localized edema, R63.5 - Abnormal weight gain Medications: New 2 omeprazole 40 mg PO BID 30 days 60 caps 3RF linaclotide (Linzess) 145 mcg PO QAM 30 caps 6RF K21.9 - Gastro-esophageal reflux disease without esophagitis, K59.00 - Constipation, unspecified Coding Level of Care Code New Pt Level 3 (95061) Diagnoses GERD (gastroesophageal reflux disease) K21.9 Constipation K59.00 Weight gain R63.5 Leg edema R60.0
== END 2023-08-11 11:57 | disposition home or self-care (01) ==
PROVIDERS: PCP Family Medicine; Referring Provider Family Medicine; Visit Provider Nurse Practitioner
DX: K21.9 Gastro-esophageal reflux disease without esophagitis (principal); K59.00 Constipation, unspecified; R63.5 Abnormal weight gain; R60.0 Localized edema
CPT/HCPCS: 99203

== ENCOUNTER → 2023-08-11 10:47 | Outpatient (BNVA) | payer MEDICAID, SELFPAY | PROVIDERS: PCP Family Medicine; Referring Provider Family Medicine; Visit Provider Nurse Practitioner | DX: K21.9 Gastro-esophageal reflux disease without esophagitis (principal); K59.00 Constipation, unspecified; R63.5 Abnormal weight gain; R60.0 Localized edema | CPT/HCPCS: 99212 ==

== ENCOUNTER → 2023-09-21 07:47 | Outpatient (REF) | payer MEDICAID, SELFPAY ==
[2023-09-21 08:10] LABS: MANUAL DIFF FLAG NO
[2023-09-21 08:20] LABS: Basophils Percent Auto 0.3 % (0-2); Eosinophils Absolute Auto 0.1 X10*3/uL (0.0-0.4); Eosinophils Percent Auto 1.9 % (0-4); Hematocrit 39.2 % (37.0-47.0); Hemoglobin 13.1 g/dl (12.0-16.0); Imm Gran Abs Auto 0.02 X10*3/uL (0.00-0.03); Imm Gran Pct Auto 0.3 % (0.0-0.4); Lymphocytes Percent Auto 29.2 % (20-40); Mean Corpuscular HGB Conc 33.4 g/dl (31.0-35.0); Mean Corpuscular Hemoglobin 30.8 pg (27.0-33.0); Mean Corpuscular Volume 92.2 fL (80.0-98.0); Mean Platelet Volume 10.4 fL (9.4-12.3); Monocytes Absolute Auto 0.5 X10*3/uL (0.1-1.2); Monocytes Percent Auto 6.6 % (2-11); Neutrophils Absolute Auto 4.2 x10*3/uL (2.0-8.3); Neutrophils Percent Auto 61.7 % (45-73); Platelet Count 351 X10*3/uL (160-400); Red Blood Count 4.25 X10*6/uL (4.20-5.50); Red Cell Distribution Width 12.8 % (11.0-16.0); White Blood Count 6.8 X10*3/uL (4.8-10.8)
[2023-09-21 08:53] LABS: Alanine Aminotransferase 18 U/L (0-31); Albumin Level 4.1 g/dL (3.5-5.0); Alkaline Phosphatase 44 U/L (39-117); Anion Gap 13 (12-20); Aspartate Amino Transferase 14 U/L (5-31); Bilirubin Total 0.7 mg/dL (0.0-1.0); Blood Urea Nitrogen 12 mg/dL (9-16); Calcium 9.7 mg/dL (8.4-10.2); Carbon Dioxide 25 mmol/L (22-29); Chloride 105 mmol/L (96-108); Estimated Glomerular Filt Rate > 60; Glucose Random 130 mg/dL (60-115); Potassium 4.1 mmol/L (3.3-5.1); Sodium 139 mmol/L (135-145); Total Protein 7.3 g/dL (6.5-8.0)
[2023-09-21 09:11] LABS: TSH reflex Free T4 1.78 uIU/mL (0.32-4.0)
== END ==
LOC: HO.SL 07:47
PROVIDERS: Absent Provider Nurse Practitioner; PCP Family Medicine; Visit Provider Hospitalist
DX: R63.5 Abnormal weight gain (principal); K59.00 Constipation, unspecified; R60.0 Localized edema; G47.33 Obstructive sleep apnea (adult) (pediatric)
CPT/HCPCS: 36415; 80053; 84443; 85025

== ENCOUNTER 2023-10-26 13:49 | Outpatient (AMB) | payer MEDICAID, SELFPAY ==
[2023-10-26 13:51] VITALS: BP 136/74; PULSE 88; BMI 42.7
--- NOTE | 2023-10-26 13:51 | MHC.OFFVIS ---
Vital Signs 10/26/23 13:51 Height 5 ft 9 in Weight 289 lb 3.944 oz BMI 42.7 BP 136/74 Blood Pressure Location Rt brachial Position Sitting Pulse 88 Intake Visit Reasons: 3 week follow up Intake Note: Adelaide presents in office today in follow up of GERD. CC: Patient reports that she is doing better from GERD with Omeprazole. She also reports that she is only able to have a BM when she takes the Linzess. She states she gets RUQ abdominal pain when she does not have a BM. 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 She has gaining weight, 80lbs over the past year. She does not think she has been overeating and no other condition like , depression etc. She also struggles with CIC throughout her life. She is tried dressing constipation with all of the udgg-yzp-iiaotlbs including MiraLax, senna, Colace, Dulcolax, fiber, and even prunes! Sometimes they work but more frequently they do not. She sometimes will go 3 or 4 days without moving her bowels sometimes the very hard but frequently she will pass very small pellets. At times she will experience epigastric pain with heartburn, and at times with the constipation she will have some right lower quadrant discomfort. Her mother also suffers constipation and heartburn. Her mother sadly, of colon cancer at age 47. She has been having colonoscopies through [facility] her last appears to likely have been in April of 2021 and she had polyps removed. She also had an endoscopy at that time that showed some ringing and ridging of the esophagus but no other severe pathology. (? Feline esophagus? ) I was unable to find the colonoscopy with the biopsy report in the [facility] database to see how many polyps with a grade. Clearly we need to establish better GI motility to control her GERD, and also to keep her from developing any sort of bowel complications similar to her mother's. However, she does not seem to have any hernia so this is encouraging. She is probably prone to diverticulitis given her constipation. The GERD is likely a combination of genetic factors and weight gain. Because of the severe weight gain I am going to get some basic labs and a thyroid test. Going forward I will consider if we want to barium swallow, I really like to get the EGD report from [facility] but could consider repeating this. ROV 3 weeks to evaluate the increased omeprazole dose and Linzess 145mcg. Orders: Orders Comprehensive Met. Panel Today K59.00 - Constipation, unspecified, R60.0 - Localized edema, R63.5 - Abnormal weight gain Complete Blood Count Auto Diff Today K59.00 - Constipation, unspecified, R60.0 - Localized edema, R63.5 - Abnormal weight gain TSH reflex Free T4 Today K59.00 - Constipation, unspecified, R60.0 - Localized edema, R63.5 - Abnormal weight gain Medications: New omeprazole 40 mg PO BID 30 days 60 caps 3RF linaclotide (Linzess) 145 mcg PO QAM 30 caps 6RF K21.9 - Gastro-esophageal reflux disease without esophagitis, K59.00 - Constipation, unspecified LABS: Laboratory Tests 09/21/23 08:09 WBC 6.8 Hgb 13.1 Hct 39.2 Plt Count 351 Estimated GFR > 60 Total Bilirubin 0.7 AST 14 ALT 18 Alkaline Phosphatase 44 TSH 1.78 TODAY'S VISIT She moves her bowels well when she takes the Linzess. She has not taking it every day because of her work schedule but when she does take it into our she will move her bowels. This has largely resolved the pain that she has on her right side in the mid abdomen except she does notice it takes about a day to go away after she moves her bowels. This is probably because she can not take it consistently to keep things moving. She also finds that her heartburn is better on the increased omeprazole. She is requesting referral to weight management which I provide. Return office visit in 3 months. [facility] Medical History Leg edema Pneumonia Chronic allergic rhinitis Asthma Surgical History History of esophagogastroduodenoscopy (EGD) H/O colonoscopy S/P breast lumpectomy S/P cholecystectomy History of appendectomy Family History Mother Colon cancer Maternal Grandfather Colon cancer Maternal Uncle Colon cancer Maternal Uncle Colon cancer Father Heart disease Kidney failure Paternal Aunt Pacemaker Paternal Grandmother Heart disease Pacemaker Social History Alcohol intake: never Patient Tobacco Use Status: Never used Tobacco Review of Systems Const Denies fatigue, Denies fever(s), Denies night sweats, Denies poor appetite and Denies weight loss Eyes Details: glasses Reports requires corrective lenses ENT Reports Normal hearing present, Denies dental pain, Denies dysphagia, Denies hearing loss, Denies mouth pain, Denies odynophagia, Denies throat swelling, Denies tongue swelling and Reports other (Dentition adequate) Card Reports no additional complaints Resp Reports no additional complaints GI Details: Denies abdominal pain, Denies melena, Denies bloating, Denies hematochezia, Reports constipation, Denies GI cramping, Denies dysphagia, Denies excessive flatus, Denies early satiety, Reports heartburn, Denies diarrhea, Denies nausea, Denies odynophagia, Denies vomiting and Denies hematemesis Skin/Breast Denies pruritus, Denies lesions, Denies rash and Denies jaundice Neuro Reports Normal hearing present and Denies Abnormal speech present Endo Denies fatigue Aller/Immun Denies throat swelling and Denies tongue swelling Physical Exam Vital Signs: Last Vital Signs Pulse 88 10/26/23 13:51 BP 136/74 10/26/23 13:51 BMI result Body Mass Index 42.7 Const General: cooperative, no acute distress, well developed and well groomed Nutritional Appearance: well nourished and obese morbidly obese Orientation/consciousness: oriented to person, oriented to place and oriented to time Limitations: No language barrier HEENT Head: Yes normocephalic and Yes atraumatic Eyes General: appearance normal, both eyes and all related structures Pupils: Equal, round and reactive pupils present Neck Neck: Yes normal visual inspection and Yes no lymphadenopathy Thyroid: Thyroid normal Resp Effort & Inspection: normal respiratory effort and able to speak in complete sentences Auscultation: clear to auscultation bilaterally Cardio Rate: regular rate Rhythm: regular rhythm Heart sounds: Normal, physiologic split S2 sound present Peripheral pulses: radial pulses present and posterior tibial pulses present GI Inspection: No distended, Yes Abdominal panniculus present and Yes obesity Palpation (GI): Soft to palpation, nontender, no guarding, not rigid and No hepatosplenomegaly present Percussion: Yes normal to percussion Auscultation: normal bowel sounds Rectal Exam - Female: deferred Skin General skin exam: no rashes or lesions noted, turgor normal, skin not dry, no jaundice, No spider nevi and no striae Rashes: no rashes Nails: normal Neuro General: oriented to person, oriented to place and oriented to time Cranial nerves: Yes Equal, round and reactive pupils present and Yes Normal hearing present Speech: No Abnormal speech present Extrem General: Yes normal to inspection, No clubbing, No cyanosis and No edema Psych Appearance: grossly normal and well kempt Mental Status: mental status grossly normal Speech and movement: Normal speech and movement present Affect: normal affect Attitude: cooperative Thought process: Normal thought process present and not confabulating Thought content: Normal thought content present Insight: Good insight present (Psych) Judgement: Good judgement present (Psych) Assessment & Plan Assessment & Plan (1) GERD (gastroesophageal reflux disease): Code(s): K21.9 - Gastro-esophageal reflux disease without esophagitis Category: Medical (2) Constipation: Code(s): K59.00 - Constipation, unspecified Category: Medical (3) Morbid obesity: Code(s): E66.01 - Morbid (severe) obesity due to excess calories Category: Medical Plan She moves her bowels well when she takes the Linzess. She has not taking it every day because of her work schedule but when she does take it into our she will move her bowels. This has largely resolved the pain that she has on her right side in the mid abdomen except she does notice it takes about a day to go away after she moves her bowels. This is probably because she can not take it consistently to keep things moving. She also finds that her heartburn is better on the increased omeprazole. She is requesting referral to weight management which I provide. Return office visit in 3 months. Orders: Referrals Medical Weight Management Referral E66.01 - Morbid (severe) obesity due to excess calories Coding Level of Care Code Est Pt Level 3 (10162) Diagnoses GERD (gastroesophageal reflux disease) K21.9 Constipation K59.00 Morbid obesity E66.01
== END 2023-10-26 14:21 | disposition home or self-care (01) ==
PROVIDERS: PCP Family Medicine; Visit Provider Nurse Practitioner
DX: K21.9 Gastro-esophageal reflux disease without esophagitis (principal); K59.00 Constipation, unspecified; E66.01 Morbid (severe) obesity due to excess calories
CPT/HCPCS: 99213

== ENCOUNTER → 2023-10-26 13:49 | Outpatient (BNVA) | payer MEDICAID, SELFPAY | PROVIDERS: PCP Family Medicine; Visit Provider Nurse Practitioner | DX: K21.9 Gastro-esophageal reflux disease without esophagitis (principal); K59.00 Constipation, unspecified; E66.01 Morbid (severe) obesity due to excess calories; Z68.41 Body mass index [BMI] 40.0-44.9, adult | CPT/HCPCS: 99212 ==

== ENCOUNTER 2024-03-24 14:47 | Outpatient (REF) | payer MEDICAID, SELFPAY ==
[2024-03-24 16:35] LABS: MANUAL DIFF FLAG NO
[2024-03-24 16:41] LABS: Basophils Percent Auto 0.2 % (0-2); Eosinophils Absolute Auto 0.1 X10*3/uL (0.0-0.4); Eosinophils Percent Auto 0.6 % (0-4); Hematocrit 40.3 % (37.0-47.0); Hemoglobin 13.6 g/dl (12.0-16.0); Imm Gran Abs Auto 0.05 X10*3/uL (0.00-0.03); Imm Gran Pct Auto 0.5 % (0.0-0.4); Lymphocytes Absolute Auto 3.2 X10*3/uL (1.2-4.9); Lymphocytes Percent Auto 29.4 % (20-40); Mean Corpuscular HGB Conc 33.7 g/dl (31.0-35.0); Mean Corpuscular Hemoglobin 31.2 pg (27.0-33.0); Mean Corpuscular Volume 92.4 fL (80.0-98.0); Mean Platelet Volume 10.4 fL (9.4-12.3); Monocytes Absolute Auto 0.5 X10*3/uL (0.1-1.2); Monocytes Percent Auto 4.6 % (2-11); Neutrophils Absolute Auto 7.1 x10*3/uL (2.0-8.3); Neutrophils Percent Auto 64.7 % (45-73); Platelet Count 407 X10*3/uL (160-400); Red Blood Count 4.36 X10*6/uL (4.20-5.50); Red Cell Distribution Width 12.8 % (11.0-16.0)
== END 2024-03-24 14:48 | disposition home or self-care (01) ==
LOC: HO.HHCL 14:47
PROVIDERS: Visit Provider Internal Medicine
DX: R23.3 Spontaneous ecchymoses (principal)
CPT/HCPCS: 36415; 85025

== ENCOUNTER 2024-07-26 11:20 | Outpatient (AMB) | payer OTHER, SELFPAY ==
[2024-07-26 11:23] VITALS: BP 130/88; PULSE 87; O2SAT 96; BMI 40.0
--- NOTE | 2024-07-26 11:23 | MHC.OFFVIS ---
Vital Signs 07/26/24 11:23 Height 5 ft 9 in Weight 271 lb 2.697 oz BMI 40.0 BP 130/88 Blood Pressure Location Rt brachial Position Sitting Pulse 87 Pulse Source Pulse Oximeter Pulse Oximetry (%) 96 Oxygen Delivery Method Room Air Intake Visit Reasons: Asthma Allergies seafood Allergy (Severe, Verified 07/26/24 11:26) Anaphylaxis hydrochlorothiazide Adverse Reaction (Intermediate, Verified 07/26/24 11:26) HYPOKALEMIA HPI Comments Details: The patient is a 44-year-old woman with known lifelong asthma. As a child she had been admitted to the hospital with asthma. she had been evaluated at [facility] until 2019. after that she was referred to [facility]. The patient was supposed to undergo pulmonary function studies and also sleep study but were never done. She continues on Symbicort. She continued to have with symptoms requirements short-acting beta agonist. Will lost several months she has required 4 courses of prednisone for asthma exacerbations. Ultimately she was placed on Flovent to increasing hold steroids. Although she still feels chest tightness and shortness of breath cough. He also has underlying allergies. We did review blood work at [place] she had back 2019 was read significant allergies to dust mites. Her eosinophils have been normal at that time. At some point she also had eczema but that has improved. She does have nasal congestion with postnasal drip. The patient does complaint daytime drowsiness. She has increased waking as well she does have snoring documented. The patient was supposed to undergo sleep study in the past but was never scheduled for her. Therefore will go ahead and schedule a home sleep study at this time. As far as pulmonary function studies she states that she was having them done and then they were stopped and she never understood why and they were not completed. Also to note the patient has been describing all right-sided chest discomfort close to the right upper quadrant area. It is not pleuritic. He has not her 1st her lung. She has also had let swelling and pain behind the knee. Therefore will go ahead and request a D-dimer. 06/16/2022 the patient is here for a pulmonary follow-up visit. She continues to have her asthma symptoms. Her asthma continues to be uncontrolled. She has daytime chest tightness and wheezing, moderate severity. She does use her rescue inhaler on a daily basis. Unfortunately, the breztri inhaler was not covered. Therefore she continues use her Symbicort. Will go ahead and switch over to Trelegy. hopefully we can maximize her respiratory Medications. In addition to that the patient did have allergy testing demonstrating elevations in the IgE and significant allergies specially to dust mites and other environmental factors. The patient may benefit from biologic therapy if she continues to be symptomatic on maximum therapy. She did undergo pulmonary function studies which we personally reviewed. Demonstrating small airways disease consistent with her asthma. In addition to that she continues to have some daytime drowsiness. Her White Swan score is elevated 01/18. She did have a home sleep study demonstrating no significant evidence of sleep apnea. Explained to the patient the studies are not perfect. If her daytime drowsiness was to worsen or she develops any other cardiovascular risk factors we can consider an in-lab sleep study. At this moment will hold off and she can try positional therapy. 08/04/2022 the patient is here for pulmonary follow-up visit. She was briefly hospitalized at [facility] after finding out she had a right middle lobe pneumonia. The patient was given antibiotics and she is feeling better. She has less congestion. Although, she continues to have right-sided chest discomfort. Will go ahead and repeat an x-ray today. We did send inhalers to the pharmacy. However, she could not get the Trelegy or the breast recovered. Therefore she has been use using Incruse. Explained to her that increase should not be used prior cell specially with her degree of asthma. Therefore, can restart Symbicort and continue the Incruse. She does state that the Incruse initially makes her feel a little winded. I will have her restart the Incruse after she takes her Symbicort with hopes that that will provide her some relief. If she continues to have that discomfort she is to stop the Incruse. She is concerned about using prednisone. We did review her allergy testing. She does have an elevated IgE. If she does not respond to the optimize respiratory therapy and if she continues use prednisone for frequent exacerbations then starting Xolair may be an option for her. Her eosinophils are normal. She does have significant allergies based on her RAST. 04/12/2023 the patient has a telehealth visit today. The patient is complaining again of right-sided chest discomfort. Similar to when she was admitted to the hospital with pneumonia. She is having some increased chest congestion and cough. She denies any fevers or chills. She has not tested for COVID. I did advise her to do so. She did have prodromal symptoms prior to this suggesting the possibility of a postviral bacterial infection. She continues use her respiratory therapy. Will go ahead and start her on antibiotic therapy for presumption of lower respiratory infection. Patient also undergo a chest x-ray. She is having some pleuritic discomfort as well [id number]. I did advise her to go to the ER but the patient is concerned. Therefore, if the patient is not better and 20-48 hours after starting the therapy or if she worsens she will need to go to the ER for further care. 08/06/2023 the patient is here for a pulmonary follow-up has been complaining of significant lower extremity edema. It has become very difficult for her to work as she is always on her feet. Her legs are swollen but also her she was on bedding. She has been on blood pressure medications including amlodipine. She will look into coming off the calcium channel subhash in view of the significant edema. The patient does not use diuretics. She may benefit some short term diuretics try to help her with the situation. She also complains significant daytime drowsiness. Her White Swan score is elevated 1124. The patient does have cardiovascular risk factors. I will request a home sleep study this time. The asthma standpoint the patient appears to be stable. She is using the Incruse and Breo. Sometimes it is difficult for her to take both inhalers. Will be more efficient for her to be on Trelegy and therefore her better adherence to the medication. 07/26/2024 the patient is here for a pulmonary follow-up visit. She was lost to follow-up for some time because she lost insurance. In the meantime she continues have significant respiratory complaints. Chest tightness and coughing. Moderate severity. She has been using her rescue inhaler although she has been noticing that it has been worsening her symptoms. She had been on Trelegy and that worked well for her in the past. Therefore will go ahead and send her Trelegy again to the pharmacy. Hopefully with the Trelegy her symptoms subsided significantly. In the meantime she should also be on her allergy medicines which I will send to the pharmacy. She does have underlying allergic asthma. Will go ahead and retest her allergies to see if she is a candidate for any biologic therapy in case she does not respond to the maximum respiratory therapy. Also she has underlying sleep apnea. Her White Swan score is elevated 1124. The patient does have significant fatigue and headaches. The patient does benefit from having a repeat sleep study this time. She is also having some pleuritic chest discomfort or back discomfort primarily on the right side. She has had it for some time. It is not reproducible. She did have a chest x-ray back in 2023 that showed some atelectasis at the bases. Will go ahead and repeat her x-ray at this time. Will have her come back and we can follow-up with the laboratory x-ray sleep study and then after that once her symptoms are stable we can look into getting a pulmonary function study. [facility] Medical History (Updated 07/26/24 @ 11:47 by Nnamdi Kemp MD) Pleuritic chest pain Allergies Leg edema Pneumonia Chronic allergic rhinitis Asthma Surgical History History of esophagogastroduodenoscopy (EGD) H/O colonoscopy S/P breast lumpectomy S/P cholecystectomy History of appendectomy Family History Mother Colon cancer Maternal Grandfather Colon cancer Maternal Uncle Colon cancer Maternal Uncle Colon cancer Father Heart disease Kidney failure Paternal Aunt Pacemaker Paternal Grandmother Heart disease Pacemaker Social History Alcohol intake: never Patient Tobacco Use Status: Never used Tobacco Review of Systems Const Reports daytime sleepiness, Reports headache(s), Reports snoring and Reports weight loss Eyes Denies change in vision and Denies itchy eyes ENT Reports headache(s), Denies lip swelling, Reports nasal congestion, Reports nasal discharge and Denies throat swelling Card Reports chest pain and Reports dyspnea on exertion Resp Reports cough, Denies pain on inspiration, Denies pain with cough, Reports dyspnea on exertion, Reports snoring and Reports wheezing GI Reports no additional complaints Musc Reports joint swelling Skin/Breast Denies rash Neuro Reports no additional complaints and Reports headache(s) Garrison/Lymph Denies easy bleeding and Denies easy bruising Aller/Immun Denies urticaria, Denies itchy eyes, Denies lip swelling, Reports seasonal rhinorrhea, Denies throat swelling and Reports wheezing Physical Exam Vital Signs: Last Vital Signs Pulse 87 07/26/24 11:23 BP 130/88 07/26/24 11:23 Pulse Ox 96 07/26/24 11:23 Oxygen Delivery Method Room Air 07/26/24 11:23 BMI result Body Mass Index 40.0 Const General: comfortable HEENT Head: Yes normal to inspection Eyes General: appearance normal, both eyes and all related structures Neck Neck: Yes supple Chest Chest palpation & inspection: normal inspection of the chest Resp Effort & Inspection: normal respiratory effort Auscultation: no crackles, no rales, no rhonchi, wheezes and diminished lung sounds Cardio Rate: regular rate Rhythm: regular rhythm Heart sounds: S1 normal heart sound present, S2 normal heart sound present and Murmur heart sound present systolic early, soft and at the right sternal border GI Auscultation: normal bowel sounds Skin General skin exam: no rashes or lesions noted Extrem General: No clubbing, No cyanosis and Yes edema Assessment & Plan Assessment & Plan (1) Asthma: Code(s): J45.909 - Unspecified asthma, uncomplicated Category: Medical Qualifiers: Asthma complication type: uncomplicated Asthma persistence: persistent Asthma severity: moderate Qualified Code(s): J45.40 - Moderate persistent asthma, uncomplicated (2) Chest pain: Code(s): R07.9 - Chest pain, unspecified Category: Medical Qualifiers: Chest pain type: chest pain on breathing Qualified Code(s): R07.1 - Chest pain on breathing (3) K[place]ON (obstructive sleep apnea): Code(s): G47.33 - Obstructive sleep apnea (adult) (pediatric) Category: Medical (4) Chronic allergic rhinitis: Code(s): J30.9 - Allergic rhinitis, unspecified Category: Medical (5) Leg edema: Code(s): R60.0 - Localized edema Category: Medical Plan start Trelegy 200 continue singular continue Claritin LASHAY as needed CXR Consider Biologic therapy if still symptomatic. based on her blood work and her phenotype likely Xolair will be a good option for her EpiPen due to her allergies to Bees Home PSG Bloodwork and Allergy testing follow-up in 3-4 months Orders: Orders Complete Blood Count Auto Diff Today T78.40XA - Allergy, unspecified, initial encounter Immunoglobulin E Today T78.40XA - Allergy, unspecified, initial encounter XR chest 2V Today R07.81 - Pleurodynia, T78.40XA - Allergy, unspecified, initial encounter RT home sleep study Today G47.33 - Obstructive sleep apnea (adult) (pediatric), T78.40XA - Allergy, unspecified, initial encounter Resp Allergy Profile Region I Today T78.40XA - Allergy, unspecified, initial encounter Erythrocyte Sedimentation Rate Today T78.40XA - Allergy, unspecified, initial encounter Medications: New levalbuterol tartrate 45 mcg/actuation (Xopenex HFA) 2 puffs inhalation Q6H 30 days PRN 15 grams 11RF shortness of breath or wheezing J45.909 - Unspecified asthma, uncomplicated Refilled hktqvltgjfw-qjzsrgpzy-lcjesqmz 200-62.5-25 mcg (Trelegy Ellipta) 1 inh inhalation DAILY 30 days 60 ea 12RF montelukast 10 mg PO DAILY 30 days 30 tabs 6RF epinephrine (EpiPen 2-Bhupinder) for 2 doses 0.3 mg (0.3 mL) IM Q10M 30 days PRN 2 ea 6RF anaphylaxis J45.40 - Moderate persistent asthma, uncomplicated loratadine 10 mg PO DAILY 30 days PRN 30 tabs 6RF allergy symptoms albuterol sulfate 2.5 mg (3 mL) inhalation Q6H 30 days PRN 180 mL 11RF shortness of breath or wheezing Coding Level of Care Code Est Pt Level 4 (48247) Diagnoses Moderate persistent asthma without complication J45.40 Asthma complication type: uncomplicated Asthma persistence: persistent Asthma severity: moderate Chest pain on breathing R07.1 Chest pain type: chest pain on breathing K[place] (obstructive sleep apnea) G47.33 Chronic allergic rhinitis J30.9 Leg edema R60.0 Time Spent (min) 17
--- OUTSIDE RECORDS SUMMARY | 2024-07-26 13:40 | XMS_ITS | Encounter Summary ---
Author Organization [employer] Address [address] [facility] [address] [place] [address] Care Team Providers Care Office Clerk Name Role Phone Maday Duron DO Primary Care Provider + [phone] Reason for Visit * Reason Comments Med Refill Encounter Details Date Type Department Care Team ([facility] st Contact Info) Description 01/10/2023 Refill [facility] [address] [place], [place] [id number] Pierce Gill FNP Social History Tobacco Use Types Packs/Day Years Used Date Smoking Tobacco: Never Smokeless Tobacco: Never Alcohol Use Standard Drinks/Week Comments Never 0 (1 standard drink = 0.6 oz pur e alcohol) Comments Unknown Sex and Gender Information Value Date Recorded Sex Assigned at Female 04/27/2022 10:17 AM EDT Legal Sex Female 10:17 AM EDT Gender Identity Female 04/27/2022 10:17 AM EDT Sexual Orientation Straight 04/27/2022 10 :17 AM EDT COVID-19 Exposure Response Date Recorded In the last 10 days, have yo u been in contact with someone who was confirmed or suspected to have Coronavirus/COVID-19? No / Unsure 12/30/2022 10:50 AM EDT documented as of this encounter Plan of Treatment Not on file documented as of this encounter Visit Diagnoses Not on filedocumented in this encounter Additional Health Concerns Assessment Noted Time PHQ-9 Depression Total Score: 0 12/31/19 23 11:01 AM EDT documented as of this encounter Care Teams Office Clerk Relationship Specialty Start Date End Date Maday Duron DO [address] [place] [address] PCP - General Family Medicine 06/28/18 documented as of this encounter
--- OUTSIDE RECORDS SUMMARY | 2024-07-26 13:40 | XMS_ITS | Encounter Summary ---
Author Organization [employer] Address [address] [facility] [address] [place] [address] Care Team Providers Care Balloon Dipper Name Role Phone JosefinaMaday cormier Primary Care Provider + [phone] Reason for Visit * Reason Comments Med Refill Encounter Details Date Type Department Care Team ([facility] st Contact Info) Description 01/10/2023 Refill [facility] [address] [place], [place] [id number] Heather Christianson MD [address] [place] [address] Moderate persistent asthma without complication Social History Tobacco Use Types Packs/Day Years [...] documented as of this encounter Visit Diagnoses Diagnosis Moderate persistent asthma without complication documented in this encounter Additional Health Concerns Assessment Noted Time PHQ-9 Depression Total Score: 0 12/31/19 23 11:01 AM EDT documented as of this encounter Care Teams Balloon Dipper Relationship Specialty Start Date End Date Maday Duron DO [address] [place] [address] PCP - General Family Medicine 06/28/18 documented as of this encounter
--- OUTSIDE RECORDS SUMMARY | 2024-07-26 13:40 | XMS_ITS | Clinical Summary ---
Author Organization [address] [place] [address] Address [address] [place] [address] Phone Care Team Providers Care Sliver Chopper Name Role Phone DomiWillie Francoise CASTELLANOS Primary Care Provider [phone] Allergies Active Allergy Reactions Criticality Noted Date Comments Shellfish Containing Products 2018 Medications Medication Sig Dispensed Refills Start Date End Date Status amLODIPine (NORVASC) 10 mg tablet Take 1 tablet (10 mg total) by mouth. Active FLUoxetine (PROzac) 40 mg capsule Take 1 capsule (40 mg total) by mouth. Active lisinopriL (PRINIVIL,ZESTRIL) 10 mg tablet Take 1 tablet (10 mg total) by mouth. Active omeprazole (PriLOSEC) [address] capsule Take 1 capsule (40 mg total) by mouth. Active topiramate (TOPAMAX) 50 mg tablet Take 1 tablet (50 mg total) by mouth. Active Active Problems No known active problems Medical History Medical History Date Comments Family history of cardiovascular disease DX:Family history of cardiovascular disease Essential hypertension DX:Essent ial hypertension Family History Medical History Relation Name Comments Stroke Father Relation Name Status Comments Father Social History Tobacco Use Types Packs/Day Years Used Date Smoking Tobacco: Never Smokeless Tobacco: Never Sex and Gender Information Value Date Recorded Sex Assigned at Not on file Gender Identity Not on file Sexual Orientation Not on file Job Start Date Occupation Industry Not on file Not on file Not on file Obstetrics History Last Filed Vital Signs Vital Sign Reading Time Taken Comments Blood Pressure 138/86 03/28/2024 8:15 AM EDT Pulse 98 03/28/2024 8:15 AM EDT Temperature - - Respiratory Rate - - Oxygen Saturation - - Inhaled Oxygen Concentration - - Weight 126 kg (277 lb) 03/28/2024 8:15 AM EDT Height 175.3 cm (5' 9 ) 03/28/2024 8:15 AM EDT Body Mass Index 40.91 03/28/2024 8:15 AM EDT Plan of Treatment Health Maintenance Due Date Last Done Comments DTaP,Tdap,and Td Vaccines (1 - Tdap) 2001 Hepatitis B Vaccines (3 of 3 - 19+ 3-dose series) 10/21/2001 05/20/2001, 04/22/2001 Cervical Cancer Screening: P ap Smear 2003 Cholesterol Screening (Lipid Panel) 05/31/2022 Depression Screening 05/31/2022 HIV Screening 05/31/2022 Hepatitis C Screening 05/31/2022 Social Influencers of Health Screening 05/31/2022 Breast Cancer Screening 02/21/2023 02/21/2021 COVID-19 Vaccine ( - 2023-2 5 season) 2024 Influenza Vaccine (#1) 2024 HIB Vaccines Aged Out No longer eligi ble based on patient's age to complete this topic HPV Vaccines Aged Out No longer eligi ble based on patient's age to complete this topic Hepatitis A Vaccines Aged Out No long er eligible based on patient's age to complete this topic IPV Vaccines Aged Out No longer eligi ble based on patient's age to complete this topic MMR Vaccines Aged Out No longer eligi ble based on patient's age to complete this topic Meningococcal ACWY Vaccine Aged Out N o longer eligible based on patient's age to complete this topic Pneumococcal Vaccine: Pediatrics (0 to 5 Years) and At-Risk Patients (6 to 64 Years) Aged Out No longer eligible b ased on patient's age to complete this topic RSV Immunization Patients Under 20 months Aged Out No longer eligible b ased on patient's age to complete this topic Varicella Vaccines Aged Out No longer eligible based on patient's age to complete this topic Procedures Procedure Name Priority Date/Time Associated Diagnosis Comments [facility] SCREENING DIGITAL Routine 02/21/2021 4:26 PM EDT Encounter for screening mammogram for malignant neoplasm of breast from Last 3 Months or Most Recently Relevant to Health Maintenance Results * [facility] SCREENING DIGITAL (02/21/2021 4:26 PM EDT) Anatomical Region Laterality Modality Mammography 02/21/2021 3:52 PM EDT Narrative 02/21/2021 4:26 PM EDT [facility] Diagnostic Imaging Department [address] [place] [id number] Patient: ??ANTONIO,RICHARD ?/Age/Sex: 1980 - - F Unit#: ??[id number] ? Location/Status: ??SPDIMAM/REG CLI ? Mnemonic/Ordering Site: ??DIGSC/SPMAM Ordering Physician: ??WILLIE DURON DO [facility] Screening Digital - 02/21/21 - 1614 EXAM: [facility] Screening Digital EXAM DATE AND TIME: 02/21/2021 4:15 PM HISTORY: ??Screening. Prior excisional biopsy of the left breast, pathology benign. COMPARISON: ??11/29/19, 07/22/16, 07/21/12 TECHNIQUE: CC and MLO views of both breasts were obtained using full field digital mammography. Bilateral digital breast tomosynthesis was performed in the MLO projection. Computer aided detection with the Flypaper 7.2-LiquiGlide was employed. TISSUE DENSITY: c. The breasts are heterogeneously dense, which may obscure small masses. FINDINGS: No suspicious masses, grouped microcalcifications, or areas of architectural distortion are seen. The skin and vascularity are unremarkable. IMPRESSION: Stable mammographic appearance of the breasts. ??No evidence of malignancy is seen. A negative mammogram in the presence of a clinically suspicious palpable abnormality does not preclude the possibility of malignancy or alter the indications for biopsy. BI-RADS: ??Category 1: Negative RECOMMENDATION(S): 1: Routine screening mammogram BILATERAL in 1 year. [id number], [id number], 2785F Dictating Physician: ??MELVA MARTINEZ MD Electronically Signed by: ??MELVA MARTINEZ MD Dic Date/Time: ??02/21/211624 Sign date/Time: ??02/21/211625 Procedure Note Melva Martinez MD - 06/24/2022 [facility] Diagnostic Imaging Department [address] [place] [address] Patient: RICHARD ALVAREZ /Age/Sex: 1980 40 - F Unit#: [id number] Location/Status: [facility] Mnemonic/Ordering Site: [facility] Ordering Physician: WILLIE DURNO DO [facility] Screening Digital - 02/21/21 - 1614 EXAM: [facility] Screening Digital EXAM DATE AND TIME: 02/21/2021 4:15 PM HISTORY: Screening. Prior excisional biopsy of the left breast,pathology benign. COMPARISON: 11/29/19, 07/22/16, 07/21/12 TECHNIQUE: CC and MLO views of both breasts were obtained using fullfield digital mammography. Bilateral digital breast tomosynthesis was performedin the MLO projection. Computer aided detection with the Flypaper 7.2-Hwas employed. TISSUE DENSITY: c. The breasts are heterogeneously dense, which mayobscure small masses. FINDINGS: No suspicious masses, grouped microcalcifications, or areas ofarchitectural distortion are seen. The skin and vascularity are unremarkable. IMPRESSION: Stable mammographic appearance of the breasts. No evidence of malignancyis seen. A negative mammogram in the presence of a clinically suspicious palpable abnormality does not preclude the possibility of malignancy or alter the indications for biopsy. BI-RADS: Category 1: Negative RECOMMENDATION(S): 1: Routine screening mammogram BILATERAL in 1 year. 21688, [id number] 3341F, 7025F Dictating Physician: MELVA MARTINEZ MD Electronically Signed by: MELVA MARTINEZ MD Dic Date/Time: 02/21/21 162 Sign date/Time: 02/21/21 162 Willie Duron DO IMG BI PROCEDURES from Last 3 Months or Most Recently Relevant to Health Maintenance Care Teams Sliver Chopper Relationship Specialty Start Date End Date Willie Duron DO [address] [place] [address] PCP - General Internal Medicine 03/23/17
--- OUTSIDE RECORDS SUMMARY | 2024-07-26 13:40 | XMS_ITS | Clinical Summary ---
Author Organization [employer] Address [address] [facility] 7[address] [place] [address] Care Team Providers Care Aircraft Structural Fitter Name Role Phone JosefinaMaday cormier Primary Care Provider + [phone] Allergies Active Allergy Reactions Criticality Noted Date Comments Hydrochlorothiazide 05/17/2019 Other reaction(s): Hypokalemia Shellfish Allergy High 12/30/2022 Other reaction(s): swelling, can't breathe Shrimp Extract 05/17/2019 Medications * This document contains information received from the source organization and may not represent a complete record from that organization. polyethylene glycol, PEG, 3350 (Glycolax) 17 GM/SCOOP powder Take 17 g by mouth 1 (one) time each day. Mix with 8oz. Water, juice, soda 2 Active sennosides (Senokot) 8.6 MG tablet Take 2 tablets by mouth if needed each day for constipation. 2 Active fluticasone (Flonase) 50 MCG/ACT nasal spray Administer 2 sprays into affected nostril(s) 1 (one) time each day. 2 Active polycarbophil (FiberCon) 625 MG tablet Take 1 tablet by mouth in the morning and at bedtime. 2 Active docusate sodium (Colace) 100 MG capsule Take 1 capsule by mouth in the morning and at bedtime. 2 Active loratadine (Claritin) 10 MG tablet Take 1 tablet by mouth 1 (one) time each day. 2 Active acetaminophen (Tylenol 8 Hour) 650 MG ER tablet Take 1 tablet by mouth every 8 (eight) hours. 2 Active albuterol (2.5 MG/3ML) 0.083% nebulizer solution Inhale 3 mL in the morning, at noon, and at bedtime. 2 Active montelukast (Singulair) 10 MG tabletIndications :Moderate persistent asthma without complication Take 1 tablet (10 mg) by mouth in the morning. 90 tablet 1 3 Active topiramate 50 MG tablet Take 1 tablet by mouth 2 times daily. 60 tablet 11 3 Active traZODone (Desyrel) 50 MG tablet Take 1-2 tablets (50-100 mg) by mouth if needed at bedtime for sleep. 60 tablet 2 3 Active hydrOXYzine HCl (Atarax) 50 MG tablet Take 1 tablet (50 mg) by mouth every 6 (six) hours if needed for anxiety. For anxiety 40 tablet 2 3 Active EPINEPHrine (Epipen) 0.3 MG/0.3ML injection syringe INJECT CONTENTS OF 1 PEN NEEDED FOR ALLERGIC REACTION 2 Active Incruse Ellipta 62.5 MCG/ACT aerosol powder Inhale 1 puff in the morning. 3 Active famotidine (Pepcid) 40 MG tablet TAKE 1 TABLET BY MOUTH AT BEDTIME 90 tablet 3 3 Active omeprazole (PriLOSEC) [address] capsuleIndication s:Moderate persistent asthma without complication Take 1 capsule (20 mg) by mouth before breakfast and before evening meal. 180 capsule 3 3 Active albuterol (Ventolin HFA) 108 (90 Base) MCG/ACT inhalerIndication s:Moderate persistent asthma without complication INHALE 2 PUFFS BY MOUTH EVERY 4 TO 6 HOURS NEEDED FOR COUGH, WHEEZE, OR SHORTNESS OF BREATH. 18 g 2 3 Active baclofen (Lioresal) 10 MG tablet Take 1 tablet (10 mg) by mouth if needed in the morning, at noon, and at bedtime for muscle spasms. 60 tablet 3 3 Active Diclofenac Sodium 1 % gel Apply 2 g topically if needed in the morning, at noon, in the evening, and at bedtime (pain). 150 g 3 3 Active sertraline (Zoloft) 50 MG tablet TAKE 1 TABLET BY MOUTH IN THE MORNING 30 tablet 2 3 Active meclizine (Antivert) 25 MG tablet TAKE 1 TABLET BY MOUTH IF NEEDED IN THE MORNING AND AT NOON, AND AT BEDTIME FOR DIZZINESS 40 tablet 2 3 Active amLODIPine (Norvasc) 10 MG tabletIndications :Essential hypertension TAKE 1 TABLET BY MOUTH IN THE MORNING 90 tablet 1 4 Active lisinopril 20 MG tablet TAKE 1 TABLET BY MOUTH IN THE MORNING 90 tablet 1 4 Active Active Problems Problem Noted Date Diagnosed Date Easy bruising 03/24/2024 Assessment & Plan (03/24/2024 2:33 PM EDT): CBC ordered patient will be contacted with result F/u with PCP Acute right ankle pain 03/24/2024 Assessment & Plan (03/24/2024 2:33 PM EDT): XRAY ordered patient will be contacted with results Acetaminophen PRN Chronic heel pain, right 03/24/2024 Assessment & Plan (03/24/2024 2:33 PM EDT): XARY and podiatry referral Irritable bowel syndrome wit h both constipation and diarrhea 03/24/2024 Ankle swelling 03/24/2024 Skin tag 01/15/2023 Vertigo 01/15/2023 Chronic migraine 01/15/2023 Major depression, recurrent, chronic 01/15/2023 Assessment & Plan (01/18/2023 2:49 PM EDT): Assessment: Patient with daily anhedonia, depressed mood, hopelessness, crying spells, isolation, sleep disturbance, no motivation, poor appetite, trouble concentrating and feeling like a failure. She denies SI/HI. She also presents with anxiousness, inability to stop worrying about different things, trouble relaxing, becoming easily irritated, anxiety attacks and thinking something awful might happen if she leaves the house. Presentation in the context of financial instability and trauma. Patient will benefit from an OP therapy referral. PCP is currently providing medication management. At this time Adelaide Dawkins meets criteria for Visit Diagnoses: Problem List Items Addressed This Visit Other Anxiety Major depression, recurrent, chronic ([facility]/HCC) Patient ready to address current needs Yes Strengths include motivation to address mental health PLAN: 1. Follow up with [facility]: Not recommended for follow-up 2. Patient goal is to decrease depressive and anxiety symptoms. 3. Behavioral Recommendations a. Patient will comply with medication b. Patient will utilize techniques/coping skills discussed c. Patient will engage in OP therapy once established d. Patient may request to speak with [facility], as needed, or during next PCP visit Anxiety 12/30/2022 Diverticulosis 12/30/2022 Chronic gastroesophageal reflux disease 12/31/19 History of COVID-19 05/18/2022 Moderate persistent asthma 05/18/2022 Chronic constipation 03/03/2018 Allergic rhinitis 05/20/2016 Essential hypertension 05/20/2016 BMI 40.0-44.9, adult 05/20/2016 Obstructive sleep apnea 05/20/2016 Resolved Problems Problem Noted Date Diagnosed Date Resolved Date Severe obesity 01/15/2023 01/15/2023 Asthma 12/30/2022 01/15/2023 Dyspnea on exertion 12/30/2022 01/16/20 23 Nausea and vomiting 12/30/2022 01/16/20 Encounters Date Type Department Care Team Description 07/26/2024 Orders Only GENERIC EXTERNAL DATA DEPARTMENT Provider, Generic External Data 05/20/2024 Refill [facility] [address] [place] [address] Maday Duron DO from Last 3 Months Immunizations Name Administration Dates Next Due Hep B, Unspecified 05/20/2001,04/22/2001 Hep B, adult 05/20/2001,04/22/2001 Influenza injectable quadriv alent IIV4 with preservative 05/20/2016 Influenza injectable quadriv alent preservative free 03/18/2023,03/11/2022,02/17/2020,05/17,06/07/2018,03/12/2017 Influenza, IIV3, injectable 03/22/2012, 9,04/26/2008 Influenza, trivalent, adjuvanted 03/22/2012 Moderna Covid-19 Vaccine 12+ 01/15/2022,11/12/19 21,10/09/2020 Pneumococcal Conjugate PCV 20 10/08/2022 Pneumococcal Polysaccharide PPSV23 08/02/2009 Tdap 02/12/2021,06/11/2009 Social History Tobacco Use Types Packs/Day Years Used Date Smoking Tobacco: Never Smokeless Tobacco: Never Tobacco Cessation:Counseling Given: Not Answered Alcohol Use Standard Drinks/Week Comments Never 0 (1 standard drink = 0.6 oz pur e alcohol) Depression Answer Date Recorded Patient Health Questionnaire-9 Score 21 01/18/2023 Housing Stability Answer Date Recorded What is your housing situation today? I have amy wray 04/12/[address] you li ve. Do you have problems with any of the following? None of the above 04/12/2023 Food Insecurity Answer Date Recorded Within the past 12 months, y ou worried that your food would run out before you got money to buy more: Never True 04/12/2023 Within the past 12 months,th e food you bought just didn't last and you didn't have enough money to get more: Never True Transportation Answer Date Recorded In the past 12 months, has l ack of transportation kept you from medical appts, meetings, work or from getting things needed for daily living? No 04/12/2023 Utilities Answer Date Recorded In the past 12 months, has t he electric, gas, oil or water company threatened to shut off services in your home? No 04/12/2023 Depression Answer Date Recorded Patient Health Questionnaire-2 Score 6 01/18/2023 Comments Unknown Sex and Gender Information Value Date Recorded Sex Assigned at Female 04/27/2022 10:17 AM EDT Legal Sex Female 10:17 AM EDT Gender Identity Female 04/27/2022 10:17 AM EDT Sexual Orientation Straight 04/27/2022 10 :17 AM EDT Last Filed Vital Signs Vital Sign Reading Time Taken Comments Blood Pressure 139/85 03/24/2024 1:42 PM EDT Pulse 102 03/24/2024 1:42 PM EDT Temperature 36.7 ??C (98 ??F) 03/24/2024 1:42 PM EDT Respiratory Rate 16 03/24/2024 1:42 PM EDT Oxygen Saturation 96% 03/24/2024 1:42 PM EDT Inhaled Oxygen Concentration - - Weight 126 kg (277 lb) 03/24/2024 1:42 PM EDT Height 175.3 cm (5' 9 ) 03/17/2024 10:43 AM EDT Body Mass Index 40.91 03/17/2024 10:43 AM EDT Plan of Treatment Health Maintenance Due Date Last Done Comments Alcohol/Substance Use Screening 1994 Family Planning (PISQ) 1997 Hepatitis B Vaccines (3 of 3 - 19+ 3-dose series) 10/21/2001 05/20/2001, 05/20/2001, 04/22/2001, Additional history exists Pap Smear 2003 Cervical Cancer Screening 2012 HPV/Cotest 2012 Depression Monitoring (PHQ-9) 07/21/2023 01/18/2023, 01/18/2023 Depression Screening 01/19/2024 01/18/2023, 01/19/20 COVID-19 Vaccine ( season) 2024 01/15/2022, 11/11/2020, 10/09/2020 Influenza Vaccine (#1) 2024 , 03/11/2022, 02/17/2020, Additional history exists SDOH Screening 09/09/2024 09/10/2023 Mammogram 02/16/2025 02/16/2023 Tobacco Screening 03/24/2025 03/24/2024 Lipid Panel 01/19/2028 01/18/2023, 02/12/2021 DTaP/Tdap/Td Vaccines (3 - Td or Tdap) 02/12/2031 02/12/2021, 06/11/2009 Zoster Vaccines (1 of 2) 2032 RSV Patients and Patients Aged 60 years or older (1 - 1-dose 75+ series) 2057 Pneumococcal Vaccine: Pediatrics (0 to 5 Years) and At-Risk Patients (6 to 49) Years) Completed 10/08/2022, 08/02/2009 HIV Screening Completed 01/18/2023, 02/12/2021 Hepatitis C Screening Completed 01/18/2023, 021 HIB Vaccines Aged Out No longer eligi [...] patient's age to complete this topic Meningococcal Vaccine Aged Out No sergio jony eligible based on patient's age to complete this topic RSV under 20 months Aged Out No longe r eligible based on patient's age to complete this topic Rotavirus Vaccines Aged Out No longer eligible based on patient's age to complete this topic Procedures Procedure Name Priority Date/Time Associated Diagnosis Comments SED RATE BY MODIFIED WESTERGREN Routine 07/26/2024 12:02 PM EST CBC WITH AUTO DIFFERENTIAL Routine 07/26/2024 12:02 PM EST BI MAMMOGRAM SCREENING TOMOSYNTHESIS BILATERAL Routine 02/16/2023 11:59 AM EDT HEPATITIS C ANTIBODY REFLEX Routine 01/18/2023 11:54 AM EDT HIV ANTIBODY/ANTIGEN ([place] [facility]) Routine 01/18/2023 11:54 AM EDT LIPID PANEL, STANDARD Routine 01/18/2023 11:54 AM EDT Essential hypertension from Last 3 Months or Most Recently Relevant to Health Maintenance Results * (ABNORMAL) CBC auto differential (07/26/2024 12:02 PM EST) White Blood Count 7.2 4.8 - 10.8 X10*3/uL [facility] Red Blood Count 4.28 4.20 - 5.50 X10*6/uL [facility] Hemoglobin 13.4 12.0 - 16.0 g/dl [facility] Hematocrit 39.8 37.0 - 47.0 % [facility] Mean Corpuscular Volume 93.0 80.0 - 98.0 fL [facility] Mean Corpuscular Hemoglobin 31.3 27.0 - 33.0 pg [facility] Mean Corpuscular HGB Conc 33.7 31.0 - 35.0 g/dl [facility] Red Cell Distribution Width 12.6 11.0 - 16.0 % [facility] Platelet Count 333 160 - 400 X10*3/uL [facility] Mean Platelet Volume 11.0 9.4 - 12.3 fL [facility] Neutrophils Percent Auto 66.6 45 - 73 % [facility] Imm Gran Pct Auto 0.8(H) 0.0 - 0.4 % [facility] Lymphocytes Percent Auto 25.8 20 - 40 % [facility] Monocytes Percent Auto 5.3 2 - 11 % [facility] Eosinophils Percent Auto 1.2 0 - 4 % [facility] Basophils Percent Auto 0.3 0 - 2 % [facility] NRBC Pct Auto 0.0 0.0 - 0.2 /100WBC [facility] Neutrophils Absolute Auto 4.8 2.0 - 8.3 x10*3/uL [facility] Imm Gran Abs Auto 0.06(H) 0.00 - 0.03 X10*3/uL [facility] Lymphocytes Absolute Auto 1.9 1.2 - 4.9 X10*3/uL [facility] Monocytes Absolute Auto 0.4 0.1 - 1.2 X10*3/uL [facility] Eosinophils Absolute Auto 0.1 0.0 - 0.4 X10*3/uL [facility] Basophils Absolute Auto 0.0 0.0 - 0.2 X10*3/uL [facility] NRBC Abs Auto 0.000 0.0 - 0.012 X10*3/uL [facility] 07/26/2024 12:0 2 PM EST 07/26/2024 12:02 PM EST us Generic External Data Provider LAB BLOOD ORDERAB LES Final Result [facility] [address] [place] [phone] * Sed Rate by Modified Westergren (07/26/2024 12:02 PM EST) Erythrocyte Sedimentation Rate 14 0 - 20 MM/HR [facility] Comment:Patients with polycy themia and many hemoglobin abnormalitiesmay have depressed sed rates whereas patients with anemiamay have elevated sed rates. 07/26/2024 12:0 2 PM EST 07/26/2024 12:02 PM EST us Generic External Data Provider LAB BLOOD ORDERAB LES Final Result [facility] [address] [place] [address] [phone] * BI Mammogram Screening Tomosynthesis Bilateral (02/16/2023 11:59 AM EDT) Anatomical Region Laterality Modality Breast Bilateral Mammography 02/16/2023 11:5 9 AM EDT Narrative 03/02/2023 3:41 PM EDT ? [facility] ? [address] ?[place] [address] ? Mammography Report ? Signed ? Patient: Adelaide Dawkins ?MR#: [id number] ?? 27 ? : 1980 ?Acct:[id number] ? Age/Sex: 42 / F ?ADM Date: 02/16/23 ? Loc: HO.MAMMO ? Attending Dr: Maday Duron DO ? Ordering Physician: Maday Duron DO ?Results: 1N ?? egative ? Date of Service: 02/16/23 ?Follow Up: 1 Year From Orig ?? inal Mammogram ? Procedure(s): MM tomosynthesis screening BI ?? Accession Number(s): [id number] ? cc: Maday Duron DO ? EXAMINATION: ?? MM SCREENING DIGITAL BREAST TOMOSYNTHESIS, BILATERAL ? CLINICAL INFORMATION: ? Screening. Asymptomatic. ? COMPARISON: ?? Mammography: This study is compared with prior exams dating back to ?? 2017. ? TECHNIQUE: ?? Digital breast tomosynthesis is performed in both the craniocaudal and ?? mediolateral oblique views along with computer-aided detection (CAD). ?? Synthesized 2D images are generated from the tomosynthesis. ? FINDINGS: ?? There are scattered areas of fibroglandular density (ACR BI-RADS breast ?? composition Category b). ? There are no significant masses, abnormal calcifications, or other ?? abnormalities. ? MM/MM tomosynthesis screening BI ?? IMPRESSION: ?? No mammographic evidence of malignancy. ? ASSESSMENT: ? BI-RADS BI-RADS 1 - Negative ? RECOMMENDATION: ?? Routine annual mammography screening. ? 1 year F/U ? This examination should not preclude the clinical evaluation of a ?? suspicious palpable abnormality. ? This patient's information was entered into a reminder system with a ?? target due date for their next mammogram. ? Dictated By: ?Mandy Oliva MD ? Signed By: ?<Electronically signed by Mandy Oliva MD in OV> ? 03/02/23 1537 ? DD/ 1159 ? TD/TT: ? Dog Control Officer: ? Procedure Note Oliver, Arthur - 03/02/2023 [facility] [address] [place], [place] [address] Mammography Report Signed Patient: JuanchoKory#: [id number] 27 : 1980Acct:[id number] Age/Sex: 42 / FADM Date: 02/16/23 Loc: HO.MAMMO Attending Dr: Maday Duron DO Ordering Physician: Maday Duronults: 1N egative Date of Service: 02/16/23Follow Up: 1 Year From Orig inal Mammogram Procedure(s): MM tomosynthesis screening BI Accession Number(s): [id number] cc: Maday Duron DO EXAMINATION: MM SCREENING DIGITAL BREAST TOMOSYNTHESIS, BILATERAL CLINICAL INFORMATION: Screening. Asymptomatic. COMPARISON: Mammography: This study is compared with prior exams dating back to 2017. TECHNIQUE: Digital breast tomosynthesis is performed in both the craniocaudal and mediolateral oblique views along with computer-aided detection (CAD). Synthesized 2D images are generated from the tomosynthesis. FINDINGS: There are scattered areas of fibroglandular density (ACR BI-RADS breast composition Category b). There are no significant masses, abnormal calcifications, or other abnormalities. MM/MM tomosynthesis screening BI IMPRESSION: No mammographic evidence of malignancy. ASSESSMENT: BI-RADS BI-RADS 1 - Negative RECOMMENDATION: Routine annual mammography screening. 1 year F/U This examination should not preclude the clinical evaluation of a suspicious palpable abnormality. This patient's information was entered into a reminder system with a target due date for their next mammogram. Dictated By: Mandy Oliva MD Signed By: <Electronically signed by Mandy Oliva MD in OV> 03/02/23 1537 DD/ 1159 TD/TT: Dog Control Officer: us Maday Duron DO IMG BI PROCEDURES Final Resu lt * Hepatitis C Antibody Reflex (01/18/2023 11:54 AM EDT) Hepatitis C Antibody Nonreactive Nonreactive [facility] Comment:Antibodies to HCV no t detected; does not exclude early acuteHCV infection. 01/18/2023 11:5 4 AM EDT 01/19/2023 5:30 AM EDT us Maday Duron DO LAB BLOOD ORDERABLES Final R esult Performing Organization Address City/[facility] Co de Phone Number [facility] [address] [place] [phone] * HIV Ab/Ag ([place]) (01/18/2023 11:54 AM EDT) HIV AB/AG Nonreactive Nonreactive [facility] Comment:HIV-1 p24 Ag and/or HIV-1/HIV-2 Ab not detected.A test result that is nonreactive does not exclude thepossibility of exposure to or infection with HIV-1 and/orHIV-2. Nonreactive results in this assay for individualswith prior exposure to HIV-1 and/or HIV-2 may be due toantigen and antibody levels that are below the limit ofdetection of this assay.The [employer] Super[employer] HIV Ag/Ab Combo assay result andsupplemental assay results should be interpreted inconjunction with the patient's clinical presentation,history and other laboratory results. If the results areinconsistent with clinical evidence, additional testing issuggested to confirm the result. 01/18/2023 11:5 4 AM EDT 01/18/2023 1:06 PM EDT us Maday Duron DO LAB BLOOD ORDERABLES Final R esult Performing Organization Address City/[facility] Co de Phone Number [facility] [address] [place] [phone] * Lipid Panel, Standard (01/18/2023 11:54 AM EDT) Triglycerides 129 mg/dL [facility] Comment:Desirable Triglyceri de: less than 150 mg/dLBorderline High Triglyceride 150-199 mg/dLHigh Triglyceride: 200-499 mg/dLVery High Triglyceride: greater than or equal to 5OO mg/dL Cholesterol 203 mg/dL [facility] Comment:Desirable Cholestero l: less than 200 mg/dLBorderline High Cholesterol: 200-239 mg/dLHigh Cholesterol: greater than 239 mg/dL LDL Cholesterol Calculated 137 mg/dl [facility] Comment:Desirable LDL: less than 100 mg/dLNear Optimal/Above Optimal LDL: 110- 129 mg/dLBorderline High LDL: 130-159 mg/dLHigh LDL: 160-189 mg/dLVery High LDL: greater than or equal to 190 mg/dL HDL Cholesterol 41 mg/dL [facility] Comment:Desirable HDL: great er than 40 mg/dL Note: This HDL assay may give artificially low results in patients with liver disease. Blood Venous blood specimen / Unknown 01/18/2023 11:54 AM EDT 01/18/2023 1:06 PM EDT us Maday Duron DO LAB BLOOD ORDERABLES Final R esult [facility] [address] [place] [phone] from Last 3 Months or Most Recently Relevant to Health Maintenance Insurance C3 Care Teams Aircraft Structural Fitter Relationship Specialty Start Date End Date Maday Duron DO [address] [place] [address] PCP - General Family Medicine 06/28/18
--- OUTSIDE RECORDS SUMMARY | 2024-07-26 13:41 | XMS_ITS | Encounter Summary ---
Author Organization [employer] Address [address] [facility] [address] [place] [address] Care Team Providers Care Powder Guard Name Role Phone Maday Duron DO Primary Care Provider + [phone] Reason for Visit * Reason Onset Date Comments Nurse Triage 01/31/2024 Encounter Details Date Type Department Care Team ([facility] st Contact Info) Description 01/31/2024 Telephone [facility] [address] [place], [place] [phone] Maday Duron DO [address] [place], [place] [phone] Nurse Triage Social History Tobacco Use Types Packs/Day Years [...] Orientation Straight 04/27/2022 10 :17 AM EDT documented as of this encounter Miscellaneous Notes * Telephone Encounter - Meryl Carranza RN - 01/31/2024 11:21 AM EDT Triage call with [facility] [employer] [facility] [place] [id number]. Pt reports chronic back pain with increased pain and discomfort for last week or so. Pt reports pain is middle to lower back and radiates down right leg with some numbness present. 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 Pt has tried tylenol/motrin, no relief, heat and ice help to some degree and pain patches don't work at all. Pt reports pain with sitting and having to stand up very slowly. Pt is ambulating with alimp . Pt is advised to come to [facility] which is open till 8pm this evening, open 830am-800pm tu, wed. as well. Pt agrees with disposition and home care is reviewed with Pt most of which is already impl emented. Insurance is verified as active. Protocol Used: Back Pain (Adult) Protocol-Based Disposition: See in Office or Video Visit within 3 Days Video visit not offered Positive Triage Questions: * Moderate back pain (e.g., interferes with normal activities) and present > 3 days * Pain radiates into the thigh or further down the leg * Patient wants to be seen * All higher-acuity triage questions were negative Care Advice Discussed: * Reassurance and Education - Back Pain * Cold or Heat * Sleep * Activity * Pain Medicines * Pain Medicines - Extra Notes and Warnings * Reasons To Call Back - Fever occurs - Numbness or weakness occurs, or bowel/bladder problems - Pain begins to shoot into the leg - Pain persists over 2 weeks - Pain becomes worse - You become worse * Reassurance and Education - Back Pain from Lifting or Twisting * Use a Cold Pack for Pain * Use Heat After 48 Hours for Pain * Telephone Encounter - Sarbjitkasiabenja Conrad - 01/31/2024 10:35 AM EDT Symptom: Back Pain - Not From Injury Outcome: Schedule an urgent appointment (within 1 hour) or talk to a nurse or provider soon Reason: Numbness of the leg The caller accepted this outcome Please contact at [phone] Uzbek documented in this encounter Plan of Treatment Not on file documented as of this encounter Visit Diagnoses Not on filedocumented in this encounter Additional Health Concerns Assessment Noted Time PHQ-9 Depression Total Score: 21 023 1:49 PM EDT documented as of this encounter Care Teams Powder Guard Relationship Specialty Start Date End Date Maday Duron DO [address] [place] [phone] PCP - General Family Medicine 06/28/18 documented as of this encounter
--- OUTSIDE RECORDS SUMMARY | 2024-07-26 13:41 | XMS_ITS | Encounter Summary ---
Author Organization [email or web address] Address [address] [facility] 7t [place] [address] Care Team Providers Care Director Name Role Phone Maday Duron DO Primary Care Provider + [phone] Reason for Visit * Reason Comments Med Refill Encounter Details Date Type Department Care Team ([facility] st Contact Info) Description 03/16/2024 Refill [facility] MEDICINE [address] [place], [place] [phone] Maday Duron DO [address] [place], [place] [phone] Essential hypertension Social History Tobacco Use Types Packs/Day Years [...] as of this encounter Visit Diagnoses Diagnosis Essential hypertension Unspecified essential hypertension documented in this encounter Additional Health Concerns Assessment Noted Time PHQ-9 Depression Total Score: 21 023 1:49 PM EDT documented as of this encounter Care Teams Director Relationship Specialty Start Date End Date Maday Duron DO [address] [place] [address] PCP - General Family Medicine 06/28/18 documented as of this encounter
== END 2024-07-26 11:46 | disposition home or self-care (01) ==
PROVIDERS: PCP Family Medicine; Visit Provider Hospitalist
DX: J45.40 Moderate persistent asthma, uncomplicated (principal); R07.1 Chest pain on breathing; G47.33 Obstructive sleep apnea (adult) (pediatric); J30.9 Allergic rhinitis, unspecified; R60.0 Localized edema
CPT/HCPCS: 99214

== ENCOUNTER 2024-07-26 11:20 | Outpatient (REF) | payer OTHER, SELFPAY ==
--- NOTE | ~2024-07-26 | XR_ITS ---
EXAMINATION: XR CHEST 2 VIEWS HISTORY: T78.40XA - Allergy, unspecified, initial encounter COMPARISON: Comparison is made with the prior examination dated 08/04/2022. FINDINGS: PA and lateral views of the chest are submitted. The lungs are expanded and clear. There is no pleural effusion, pneumothorax, or pulmonary vascular congestion. The heart is normal in size. The bones are intact. XR/XR chest 2V IMPRESSION: No acute cardiopulmonary abnormality. Electronically signed by: Fortino Kennedy MD 07/27/2024 07:58 AM EST
[2024-07-26 12:04] LABS: MANUAL DIFF FLAG NO
[2024-07-26 12:55] LABS: Basophils Percent Auto 0.3 % (0-2); Eosinophils Absolute Auto 0.1 X10*3/uL (0.0-0.4); Eosinophils Percent Auto 1.2 % (0-4); Hematocrit 39.8 % (37.0-47.0); Hemoglobin 13.4 g/dl (12.0-16.0); Imm Gran Abs Auto 0.06 X10*3/uL (0.00-0.03); Imm Gran Pct Auto 0.8 % (0.0-0.4); Lymphocytes Absolute Auto 1.9 X10*3/uL (1.2-4.9); Lymphocytes Percent Auto 25.8 % (20-40); Mean Corpuscular HGB Conc 33.7 g/dl (31.0-35.0); Mean Corpuscular Hemoglobin 31.3 pg (27.0-33.0); Monocytes Absolute Auto 0.4 X10*3/uL (0.1-1.2); Monocytes Percent Auto 5.3 % (2-11); Neutrophils Absolute Auto 4.8 x10*3/uL (2.0-8.3); Neutrophils Percent Auto 66.6 % (45-73); Platelet Count 333 X10*3/uL (160-400); Red Blood Count 4.28 X10*6/uL (4.20-5.50); Red Cell Distribution Width 12.6 % (11.0-16.0); White Blood Count 7.2 X10*3/uL (4.8-10.8)
[2024-07-26 13:37] LABS: Erythrocyte Sedimentation Rate 14 MM/HR (0-20)
--- OUTSIDE RECORDS SUMMARY | 2024-07-26 14:18 | XMS_ITS | Encounter Summary ---
Author Organization [employer] Address [address] [facility] 7t [place] [address] Care Team Providers Care Public Policy Manager Name Role Phone VladimirMaday silva Primary Care Provider + [phone] Encounter Details Date Type Department Care Team (Late st Contact Info) Description 07/26/2024 Orders Only GENERIC EXTERNAL DATA DEPARTMENT Provider, Generic External Data Social History Tobacco Use Types Packs/Day Years [...] on file documented as of this encounter Procedures Procedure Name Priority Date/Time Associated Diagnosis Comments CBC WITH AUTO DIFFERENTIAL Routine 07/26/2024 12:02 PM EST SED RATE BY MODIFIED WESTERGREN Routine 07/26/2024 12:02 PM EST documented in this encounter Results * Sed Rate by Modified Westergren (07/26/2024 12:02 PM EST) Pathologist [facility] Erythrocyte Sedimentation Rate 14 0 - 20 MM/HR [facility] Comment:Patients with polycy themia and many hemoglobin abnormalitiesmay have depressed sed rates whereas patients with anemiamay have elevated sed rates. 07/26/2024 12:0 2 PM EST 07/26/2024 12:02 PM EST us Generic External Data Provider LAB BLOOD ORDERAB LES Final Result Performing Organization Address City/State/[facility] Co de Phone Number [facility] [address] [place] [address] [phone] * (ABNORMAL) CBC auto differential (07/26/2024 12:02 PM EST) Pathologist [facility] White Blood Count 7.2 4.8 - 10.8 X10*3/uL [facility] Red Blood Count 4.28 4.20 - 5.50 X10*6/uL [facility] Hemoglobin 13.4 12.0 - 16.0 g/dl [facility] Hematocrit 39.8 37.0 - 47.0 % [facility] Mean Corpuscular Volume 93.0 80.0 - 98.0 fL [facility] Mean Corpuscular Hemoglobin 31.3 27.0 - 33.0 pg [facility] Mean Corpuscular HGB Conc 33.7 31.0 - 35.0 g/dl [facility] Red Cell Distribution Width 12.6 11.0 - 16.0 % [facility] Platelet Count 333 160 - 400 X10*3/uL [facility] Mean Platelet Volume 11.0 9.4 - 12.3 fL [facility] Neutrophils Percent Auto 66.6 45 - 73 % [facility] Imm Gran Pct Auto 0.8(H) 0.0 - 0.4 % [facility] Lymphocytes Percent Auto 25.8 20 - 40 % [facility] Monocytes Percent Auto 5.3 2 - 11 % [facility] Eosinophils Percent Auto 1.2 0 - 4 % [facility] Basophils Percent Auto 0.3 0 - 2 % [facility] NRBC Pct Auto 0.0 0.0 - 0.2 /100WBC [facility] Neutrophils Absolute Auto 4.8 2.0 - 8.3 x10*3/uL [facility] Imm Gran Abs Auto 0.06(H) 0.00 - 0.03 X10*3/uL [facility] Lymphocytes Absolute Auto 1.9 1.2 - 4.9 X10*3/uL [facility] Monocytes Absolute Auto 0.4 0.1 - 1.2 X10*3/uL [facility] Eosinophils Absolute Auto 0.1 0.0 - 0.4 X10*3/uL [facility] Basophils Absolute Auto 0.0 0.0 - 0.2 X10*3/uL [facility] NRBC Abs Auto 0.000 0.0 - 0.012 X10*3/uL [facility] 07/26/2024 12:0 2 PM EST 07/26/2024 12:02 PM EST us Generic External Data Provider LAB BLOOD ORDERAB LES Final Result [facility] [address] [place] [phone] documented in this encounter Visit Diagnoses Not on filedocumented in this encounter Additional Health Concerns Assessment Noted Time PHQ-9 Depression Total Score: 21 023 1:49 PM EDT documented as of this encounter Care Teams Public Policy Manager Relationship Specialty Start Date End Date Maday Duron DO [address] [place] [address] PCP - General Family Medicine 06/28/18 documented as of this encounter
--- OUTSIDE RECORDS SUMMARY | 2024-07-26 14:18 | XMS_ITS | Clinical Summary ---
Author Organization [employer] Address [address] [facility] 7t [place] [address] Care Team Providers Care Bunker Worker Name Role Phone JosefinaMaday cormier Primary Care Provider + [phone] Allergies Active Allergy Reactions Criticality Noted Date [...] Visit Other Anxiety Major depression, recurrent, chronic ([facility]/HCC) Patient ready to address current needs Yes Strengths include motivation to address mental health PLAN: 1. Follow up with [facility]: Not recommended for follow-up 2. Patient goal [...] DEPARTMENT Provider, Generic External Data 05/20/2024 Refill [facility] MEDICINE [address] [place] [address] Maday Duron DO from Last 3 Months [...] Blood Count 7.2 4.8 - 10.8 X10*3/uL [facility] Red Blood Count 4.28 4.20 - 5.50 X10*6/uL [facility] Hemoglobin 13.4 12.0 - 16.0 g/dl [facility] Hematocrit 39.8 37.0 - 47.0 % [facility] Mean Corpuscular Volume 93.0 80.0 - 98.0 fL [facility] Mean Corpuscular Hemoglobin 31.3 27.0 - 33.0 pg [facility] Mean Corpuscular HGB Conc 33.7 31.0 - 35.0 g/dl [facility] Red Cell Distribution Width 12.6 11.0 - 16.0 % [facility] Platelet Count 333 160 - 400 X10*3/uL [facility] Mean Platelet Volume 11.0 9.4 - 12.3 fL [facility] Neutrophils Percent Auto 66.6 45 - 73 % [facility] Imm Gran Pct Auto 0.8(H) 0.0 - 0.4 % [facility] Lymphocytes Percent Auto 25.8 20 - 40 % [facility] Monocytes Percent Auto 5.3 2 - 11 % [facility] Eosinophils Percent Auto 1.2 0 - 4 % [facility] Basophils Percent Auto 0.3 0 - 2 % [facility] NRBC Pct Auto 0.0 0.0 - 0.2 /100WBC [facility] Neutrophils Absolute Auto 4.8 2.0 - 8.3 x10*3/uL [facility] Imm Gran Abs Auto 0.06(H) 0.00 - 0.03 X10*3/uL [facility] Lymphocytes Absolute Auto 1.9 1.2 - 4.9 X10*3/uL [facility] Monocytes Absolute Auto 0.4 0.1 - 1.2 X10*3/uL [facility] Eosinophils Absolute Auto 0.1 0.0 - 0.4 X10*3/uL [facility] Basophils Absolute Auto 0.0 0.0 - 0.2 X10*3/uL [facility] NRBC Abs Auto 0.000 0.0 - 0.012 X10*3/uL [facility] 07/26/2024 12:0 2 PM EST 07/26/2024 12:02 PM EST us Generic External Data Provider LAB BLOOD ORDERAB LES Final Result [facility] [address] [place] [phone] [phone] * Sed Rate by Modified Westergren (07/26/2024 12:02 PM EST) Erythrocyte Sedimentation Rate 14 0 - 20 MM/HR [facility] Comment:Patients with polycy themia and many hemoglobin abnormalitiesmay have depressed sed rates whereas patients with anemiamay have elevated sed rates. 07/26/2024 12:0 2 PM EST 07/26/2024 12:02 PM EST us Generic External Data Provider LAB BLOOD ORDERAB LES Final Result [facility] [address] [place] [address] [phone] * BI Mammogram Screening Tomosynthesis Bilateral (02/16/2023 11:59 AM EDT) Anatomical Region Laterality Modality Breast Bilateral Mammography 02/16/2023 11:5 9 AM EDT Narrative 03/02/2023 3:41 PM EDT ? [facility] ? [address] ?[place] [address] ? Mammography Report ? Signed ? Patient: Adelaide Dawkins ?MR#: [id number] ?? 27 ? : 1980 ?Acct:[id number] ? Age/Sex: 42 / F ?ADM Date: 02/16/23 ? Loc: HO.MAMMO ? Attending Dr: Maday Duron DO ? Ordering Physician: Maday Duron DO ?Results: 1N ?? egative ? Date of Service: 02/16/23 ?Follow Up: 1 Year From Orig ?? inal Mammogram ? Procedure(s): MM tomosynthesis screening BI ?? Accession Number(s): [id number] ? cc: Maday Duron DO ? EXAMINATION: [...] 1537 ? DD/ 1159 ? TD/TT: ? Director Of Rehabilitative Services: ? Procedure Note Oliver, Arthur - 03/02/2023 Belinda [facility] [address] [place], [place] [address] Mammography Report Signed Patient: JuanchoKory#: [id number] 25 : 1980Acct:[id number] Age/Sex: 42 / FADM Date: 02/16/23 Loc: HO.MAMMO Attending Dr: Maday Duron DO Ordering Physician: Maday Duronults: 1N egative Date of Service: 02/16/23Follow Up: 1 Year From Orig inal Mammogram Procedure(s): MM tomosynthesis screening BI Accession Number(s): [id number] cc: Maday Duron DO EXAMINATION: MM SCREENING [...] in OV> 03/02/23 1537 DD/ 1159 TD/TT: Director Of Rehabilitative Services: us Maday Duron DO IMG BI PROCEDURES Final Resu lt * Hepatitis C Antibody Reflex (01/18/2023 11:54 AM EDT) Hepatitis C Antibody Nonreactive Nonreactive [facility] Comment:Antibodies to HCV no t detected; does not exclude early acuteHCV infection. 01/18/2023 11:5 4 AM EDT 01/19/2023 5:30 AM EDT us Maday Duron DO LAB BLOOD ORDERABLES Final R esult Performing Organization Address City/[facility] Co de Phone Number [facility] [address] [place] [phone] * HIV Ab/Ag ([place]) (01/18/2023 11:54 AM EDT) HIV AB/AG Nonreactive Nonreactive [facility] Comment:HIV-1 p24 Ag and/or HIV-1/HIV-2 Ab not detected.A test result that is nonreactive does not exclude thepossibility of exposure to or infection with HIV-1 and/orHIV-2. Nonreactive results in this assay for individualswith prior exposure to HIV-1 and/or HIV-2 may be due toantigen and antibody levels that are below the limit ofdetection of this assay.The [place] [employer]ist HIV Ag/Ab Combo assay result andsupplemental assay results should be interpreted inconjunction with the patient's clinical presentation,history and other laboratory results. If the results areinconsistent with clinical evidence, additional testing issuggested to confirm the result. 01/18/2023 11:5 4 AM EDT 01/18/2023 1:06 PM EDT us Maday Duron DO LAB BLOOD ORDERABLES Final R esult Performing Organization Address City/[facility] Co de Phone Number [facility] [address] [place] [phone] * Lipid Panel, Standard (01/18/2023 11:54 AM EDT) Triglycerides 129 mg/dL [facility] Comment:Desirable Triglyceri de: less than 150 mg/dLBorderline High Triglyceride 150-199 mg/dLHigh Triglyceride: 200-499 mg/dLVery High Triglyceride: greater than or equal to 5OO mg/dL Cholesterol 203 mg/dL [facility] Comment:Desirable Cholestero l: less than 200 mg/dLBorderline High Cholesterol: 200-239 mg/dLHigh Cholesterol: greater than 239 mg/dL LDL Cholesterol Calculated 137 mg/dl [facility] Comment:Desirable LDL: less than 100 mg/dLNear Optimal/Above Optimal LDL: 110- 129 mg/dLBorderline High LDL: 130-159 mg/dLHigh LDL: 160-189 mg/dLVery High LDL: greater than or equal to 190 mg/dL HDL Cholesterol 41 mg/dL [facility] Comment:Desirable HDL: great er than 40 mg/dL Note: This HDL assay may give artificially low results in patients with liver disease. Blood Venous blood specimen / Unknown 01/18/2023 11:54 AM EDT 01/18/2023 1:06 PM EDT us Maday Duron DO LAB BLOOD ORDERABLES Final R esult [facility] [address] [place] [phone] from Last 3 Months or Most Recently Relevant to Health Maintenance Insurance C3 Care Teams Bunker Worker Relationship Specialty Start Date End Date Maday Duron DO [address] [place] [address] PCP - General Family Medicine 06/28/18
--- OUTSIDE RECORDS SUMMARY | 2024-07-26 14:18 | XMS_ITS | Encounter Summary ---
Author Organization [employer] Address [address] [facility] 7t [place] [address] Care Team Providers Care Brush Washer Name Role Phone Maday Duron DO Primary Care Provider + [phone] Reason for Visit * Reason Comments Med Refill Encounter Details Date Type Department Care Team ([facility] st Contact Info) Description 01/10/2023 Refill [facility] [address] [place], [place] [phone] Pierce Gill FNP Social History Tobacco Use [...] documented as of this encounter Care Teams Brush Washer Relationship Specialty Start Date End Date Maday Duron DO [address] [place] [address] PCP - General Family Medicine 06/28/18 documented as of this encounter
--- OUTSIDE RECORDS SUMMARY | 2024-07-26 14:18 | XMS_ITS | Encounter Summary ---
Author Organization [employer] Address [address] [facility] [address] [place] [address] Care Team Providers Care Sampler First Name Role Phone Maday Duron DO Primary Care Provider + [phone] Reason for Visit * Reason Onset Date Comments Nurse Triage 01/31/2024 Encounter Details Date Type Department Care Team ([facility] st Contact Info) Description 01/31/2024 Telephone [facility] MEDICINE [address] [place], [place] [phone] Maday Duron DO [address] [place], [place] [phone] Nurse Triage Social History Tobacco Use Types [...] 01/31/2024 11:21 AM EDT Triage call with [place] [facility] [place] [id number]. Pt reports chronic back pain with increased [...] . Pt is advised to come to [facility] which is open till 8pm this evening, [...] caller accepted this outcome Please contact at [phone] [place] documented in this encounter Plan of Treatment Not on file documented as of this encounter Visit Diagnoses Not on filedocumented in this encounter Additional Health Concerns Assessment Noted Time PHQ-9 Depression Total Score: 21 023 1:49 PM EDT documented as of this encounter Care Teams Sampler First Relationship Specialty Start Date End Date Maday Duron DO [address] [place] [phone] PCP - General Family Medicine 06/28/18 documented as of this encounter
--- OUTSIDE RECORDS SUMMARY | 2024-07-26 14:18 | XMS_ITS | Encounter Summary ---
Author Organization [employer] Address [address] [facility] 7t [place] [address] Care Team Providers Care Application Support Developer Name Role Phone Maday Duron DO Primary Care Provider + [phone] Reason for Visit * Reason Comments Med Refill Encounter Details Date Type Department Care Team ([facility] st Contact Info) Description 03/16/2024 Refill [facility] MEDICINE [address] [place], [place] [phone] Maday Duron DO [address] [place], [place] [phone] Essential hypertension Social History Tobacco Use Types [...] documented as of this encounter Care Teams Application Support Developer Relationship Specialty Start Date End Date Maday Duron DO [address] [place] [address] PCP - General Family Medicine 06/28/18 documented as of this encounter
--- OUTSIDE RECORDS SUMMARY | 2024-07-26 14:18 | XMS_ITS | Encounter Summary ---
Author Organization [employer] Address [address] [facility] 7t [place] [address] Care Team Providers Care Human Resources Executive Name Role Phone JosefinaMaday cormier Primary Care Provider + [phone] Reason for Visit * Reason Comments Med Refill Encounter Details Date Type Department Care Team ([facility] st Contact Info) Description 01/10/2023 Refill [facility] MEDICINE [address] [place], [place] [phone] Heather Christianson MD [address] [place] [address] Moderate persistent asthma without complication Social History [...] documented as of this encounter Care Teams Human Resources Executive Relationship Specialty Start Date End Date Maday Duron DO [address] [place] [address] PCP - General Family Medicine 06/28/18 documented as of this encounter
--- OUTSIDE RECORDS SUMMARY | 2024-07-26 14:18 | XMS_ITS | Clinical Summary ---
Author Organization [address] [place] [address] Address [address] [place] [address] Phone Care Team Providers Care Pipe Setter Name Role Phone DomiWillie Francoise CASTELLANOS Primary Care Provider +[phone] Allergies Active Allergy Reactions Criticality Noted Date [...] Procedure Name Priority Date/Time Associated Diagnosis Comments [facility] SCREENING DIGITAL Routine 02/21/2021 4:26 PM EDT Encounter for screening mammogram for malignant neoplasm of breast from Last 3 Months or Most Recently Relevant to Health Maintenance Results * [facility] SCREENING DIGITAL (02/21/2021 4:26 PM EDT) Anatomical Region Laterality Modality Mammography 02/21/2021 3:52 PM EDT Narrative 02/21/2021 4:26 PM EDT [facility] Diagnostic Imaging Department [address] [place] [address] Patient: ??ANTONIO,RICHARD ?/Age/Sex: 1980 - - F Unit#: ??[id number] ? Location/Status: ??SPDIMAM/REG CLI ? Mnemonic/Ordering Site: ??DIGSC/SPMAM Ordering Physician: ??WILLIE DURON DO [facility] Screening Digital - 02/21/21 - 1614 EXAM: [facility] Screening Digital EXAM DATE AND TIME: 02/21/2021 4:15 PM HISTORY: ??Screening. Prior excisional biopsy of the left breast, pathology benign. COMPARISON: ??11/29/19, 07/22/16, 07/21/12 TECHNIQUE: CC and MLO views of both breasts were obtained using full field digital mammography. Bilateral digital breast tomosynthesis was performed in the MLO projection. Computer aided detection with the [employer] 7.2-Kashmi was employed. TISSUE DENSITY: c. The breasts [...] Routine screening mammogram BILATERAL in 1 year. [id number], [id number] 0891F, 3678F Dictating Physician: ??MELVA MARTINEZ MD Electronically Signed by: ??MELVA MARTINEZ MD Dic Date/Time: ??02/21/211624 Sign date/Time: ??02/21/211625 Procedure Note Melva Martinez MD - 06/24/2022 [facility] Diagnostic Imaging Department [address] [place] [address] Patient: RICHARD ALVAREZ /Age/Sex: 1980 40 - F Unit#: [id number] Location/Status: [facility] Mnemonic/Ordering Site: [facility] Ordering Physician: WILLIE DURON DO [facility] Screening Digital - 02/21/21 - 1614 EXAM: [facility] Screening Digital EXAM DATE AND TIME: 02/21/2021 4:15 PM HISTORY: Screening. Prior excisional biopsy of the left breast,pathology benign. COMPARISON: 11/29/19, 07/22/16, 07/21/12 TECHNIQUE: CC and MLO views of both breasts were obtained using fullfield digital mammography. Bilateral digital breast tomosynthesis was performedin the MLO projection. Computer aided detection with the [employer] 7.2-Hwas employed. TISSUE DENSITY: c. The breasts [...] Routine screening mammogram BILATERAL in 1 year. 70053, 01983 3341F, 7025F Dictating Physician: MELVA MARTINEZ MD Electronically Signed by: MELVA MARTINEZ MD Dic Date/Time: 02/21/21 162 Sign date/Time: 02/21/21 162 Willie Duron DO IMG BI PROCEDURES from Last 3 Months or Most Recently Relevant to Health Maintenance Care Teams Pipe Setter Relationship Specialty Start Date End Date Willie Duron DO [address] [place] [address] PCP - General Internal Medicine 03/23/17
[2024-07-28 04:59] LABS: Class Alternaria alternata 0; Class Aspergillus fumigatus 0; Class Bermuda Grass 0; Class Birch 0; Class Cat Dander 0; Class Cladosporium herbarum 0; Class Cockroach 2; Class Common Ragweed 0; Class Cottonwood 0; Class Derm. pterony 3; Class Dermatophagoides farinae 3; Class Dog Dander 0; Class Elm 0; Class Maple Box Elder 0; Class Mountain Cedar 0/1; Class Mouse Urine Protein 0; Class Mugwort 0; Class Oak 0; Class Penicillium crysogenum 0; Class Rough Pigweed 0; Class Sheep Sorrel 0; Class Sycamore 0; Class Timothy Grass 0/1; Class Walnut Tree 0; Class White Ash 0; Class White Mulberry 0; D001 IgE D pteronyssinus 6.25 kU/L; D002 - IgE D farinae 7.09 kU/L; E001 - IgE Cat Dander <0.10 kU/L; E005 - IgE Dog Dander <0.10 kU/L; E072-IgE Mouse Urine <0.10 kU/L; G002 IgE Bermuda Grass <0.10 kU/L; G006 - IgE Timothy Grass 0.12 kU/L; I006-IgE Cockroach, German 2.25 kU/L; Immunoglobulin E 66 kU/L (<OR=114); M001 IgE Penicillium chrysogen <0.10 kU/L; M002 - IgE Cladosporium herbar <0.10 kU/L; M003 - IgE Aspergillus fumigat <0.10 kU/L; M006 - IgE Alternaria alternat <0.10 kU/L; T001 IgE Maple/Box Elder <0.10 kU/L; T003 IgE Common Silver Birch <0.10 kU/L; T006 - IgE Cedar, Mountain 0.23 kU/L; T007 - IgE Oak, White <0.10 kU/L; T008 IgE Elm, American <0.10 kU/L; T010 - IgE Walnut <0.10 kU/L; T011 - IgE Maple Leaf Sycamore <0.10 kU/L; T014 - IgE Cottonwood <0.10 kU/L; T015 - IgE Ash, White <0.10 kU/L; T070 - IgE White Mulberry <0.10 kU/L; W001 - IgE Ragweed, Short <0.10 kU/L; W006 - IgE Mugwort <0.10 kU/L; W014 IgE Pigweed, Common <0.10 kU/L; W018 IgE Sheep Sorrel <0.10 kU/L
== END 2024-07-26 11:21 | disposition home or self-care (01) ==
LOC: HO.LAB 11:20
PROVIDERS: PCP Family Medicine; Visit Provider Hospitalist
DX: J45.40 Moderate persistent asthma, uncomplicated (principal); R07.1 Chest pain on breathing; G47.33 Obstructive sleep apnea (adult) (pediatric); J30.9 Allergic rhinitis, unspecified; R60.0 Localized edema
CPT/HCPCS: 36415; 71046; 82785; 85025; 85652; 86003

== ENCOUNTER → 2024-07-26 12:27 | Outpatient (BNV) | payer OTHER, SELFPAY | PROVIDERS: PCP Family Medicine; Visit Provider Radiology Diagnostic Radiology | DX: T78.40XA Allergy, unspecified, initial encounter (principal) | CPT/HCPCS: 71046 ==

== ENCOUNTER 2025-05-04 10:58 | Outpatient (REF) | payer OTHER, SELFPAY ==
--- OUTSIDE RECORDS SUMMARY | 2025-05-04 10:15 | XMS_ITS | Encounter Summary ---
Author Organization [employer] Address [address] [facility] 7[address] [place] [address] Care Team Providers Care Power Grader Operator Name Role Phone Maday Duron DO Primary Care Provider + [phone] Encounter Details Date Type Department Care Team (Late st Contact Info) Description 05/04/2025 10:15 AM EST Office Visit [facility] MEDICINE [address] [place], [place] [phone] Maday Duron DO [address] [place], [place] [phone] Essential hypertension (Primary Dx); Major depression, recurrent, chronic (CMS/HCC); Moderate persistent asthma without complication; Chronic allergic rhinitis; Obstructive sleep apnea; Chronic GERD; Chronic constipation; Vertigo; Chronic migraine; Chest pain, unspecified type; Macromastia; Healthcare maintenance; Polyarthralgia Social History Tobacco Use Types Packs/Day Years Used Date Smoking Tobacco: Never Smokeless Tobacco: Never Alcohol Use Standard Drinks/Week Comments Never 0 (1 standard drink = 0.6 oz pur e alcohol) Depression Answer Date Recorded Patient Health Questionnaire-9 Score 10 05/04/2025 Patient Health Questionnaire-9 Score 10 05/04/2025 Last PHQ-9: Questionnaire Data Not on file 1 07/04/2024 Housing Stability Answer Date Recorded What is your housing situation today? I have amy wray 04/27/[address] you li ve. Do you have problems with any of the following? None of the above 04/27/2025 Food Insecurity Answer Date Recorded Within the past 12 months, y ou worried that your food would run out before you got money to buy more: Never True 04/27/2025 Within the past 12 months,th e food you bought just didn't last and you didn't have enough money to get more: Never True Transportation Answer Date Recorded In the past 12 months, has l ack of transportation kept you from medical appts, meetings, work or from getting things needed for daily living? No 04/27/2025 Utilities Answer Date Recorded In the past 12 months, has t he electric, gas, oil or water company threatened to shut off services in your home? No 04/27/2025 Depression Answer Date Recorded Patient Health Questionnaire-2 Score 3 05/04/2025 Internet Access Answer Date Recorded Internet Access Q1 Yes 04/27/2025 Internet Access Q2 Not on file 04/27/2025 Comments Unknown Sex and Gender Information Value Date Recorded Sex Assigned at Female 04/27/2022 10:17 AM EDT Legal Sex Female 10:17 AM EDT Gender Identity Female 04/27/2022 10:17 AM EDT Sexual Orientation Straight 04/27/2022 10 :17 AM EDT documented as of this encounter Last Filed Vital Signs Vital Sign Reading Time Taken Comments Blood Pressure 120/82 05/04/2025 10:12 AM EST Pulse 72 05/04/2025 10:12 AM EST Temperature 36.6 C (97.9 F) 05/04/2025 10:12 AM EST Respiratory Rate 16 05/04/2025 10:12 AM EST Oxygen Saturation - - Inhaled Oxygen Concentration - - Weight 122 kg (270 lb) 05/04/2025 10:12 AM EST Height 175.3 cm (5' 9 ) 05/04/2025 10:12 AM EST Body Mass Index 39.87 05/04/2025 10:12 AM EST documented in this encounter Functional Status * Over the past 2 weeks, how often have you been bothered by any of the following problems? Question Answer Date of Assessment Author Patient Health Questionnaire -2 Score 3 05/04/2025 10:57 AM EST Jing Og [place] * Little interest or pleasure in doing things Answer Date of Assessment Author Several days 05/04/2025 10:57 AM EST Jing Og [place] * Feeling down, depressed, or hopeless Answer Date of Assessment Author More than half the days 05/04/2025 10:57 AM Jing Gunter [place] * Trouble falling or staying asleep, or sleeping too much Answer Date of Assessment Author More than half the days 05/04/2025 10:57 AM Jing Gunter [place] * Feeling tired or having little energy Answer Date of Assessment Author Several days 05/04/2025 10:57 AM Jing Gunter [place] * Poor appetite or overeating Answer Date of Assessment Author Nearly every day 05/04/2025 10:57 AM Jing Gunter [place] * Feeling bad about yourself - or that you are a failure or have let yourself or your family down Answer Date of Assessment Author Not at all 05/04/2025 10:57 AM Jing Gunter [place] * Trouble concentrating on things, such as reading the newspaper or watching television Answer Date of Assessment Author Several days 05/04/2025 10:57 AM Jing Gunter [place] * Moving or speaking so slowly that other people could have noticed? Or the opposite - being so fidgety or restless that you have been moving around a lot more than usual. Answer Date of Assessment Author Not at all 05/04/2025 10:57 AM Jing Gunter [place] * Thoughts that you would be better off or hurting yourself in some way Answer Date of Assessment Author Not at all 05/04/2025 10:57 AM Jing Gunter [place] * Patient Health Questionnaire-9 Score Answer Date of Assessment Author 10 05/04/2025 10:57 AM Jing Gunter [place] * How difficult have these problems made it for you to do your work, take care of things at home, or get along with other people? Answer Date of Assessment Author Not difficult at all 05/04/2025 10:57 AM Jing Alfonso [place] * Over the last 2 weeks, how often have you been bothered by any of the following problems? Question Answer Date of Assessment Author Feeling nervous, anxious, or on edge 3 05/04/2025 10:56 AM Jing Gunter MA Not being able to stop or co ntrol worrying 3 05/04/2025 10:56 AM Jing Gunter [place] Worrying too much about diff erent things 3 05/04/2025 10:56 AM Jing Gunter [place] Trouble relaxing 3 05/04/2025 10:56 AM Jing Gunter [place] Being so restless that it is hard to sit still 3 05/04/2025 10:56 AM Jing Gunter [place] Becoming easily annoyed or irritable 3 05/04/2025 10:56 AM Jing Gunter [place] Feeling afraid as if somethi ng awful might happen 3 05/04/2025 10:56 AM Jing Gunter MA LUZ-7 Total Score 21 05/04/2025 10:56 AM Jing Gunter [place] documented as of this encounter Plan of Treatment Scheduled Orders Name Type Priority Associated Diagnoses Orde r Schedule XR Knee 4+ Views Right Imaging Routine Polyarthralgia Expected: 05/04/2025, Expires: 05/04/2026 XR Hip 2 or 3 Views Right Imaging Routine Polyarthralgia Expected: 05/04/2025, Expires: 05/04/2026 documented as of this encounter Visit Diagnoses Diagnosis Essential hypertension- Primary Unspecified essential hypertension Major depression, recurrent, chronic (CMS/HCC) Moderate persistent asthma without complication Chronic allergic rhinitis Obstructive sleep apnea Obstructive sleep apnea (adult) (pediatric) Chronic GERD Chronic constipation Unspecified constipation Vertigo Dizziness and giddiness Chronic migraine Chest pain, unspecified type Macromastia Hypertrophy of breast Healthcare maintenance Polyarthralgia Pain in joint, multiple sites documented in this encounter Additional Health Concerns Assessment Noted Time PHQ-9 Depression Total Score: 10 025 10:57 AM EST documented as of this encounter Care Teams Power Grader Operator Relationship Specialty Start Date End Date Maday Duron DO [address] [place] [address] PCP - General Family Medicine 06/28/18 documented as of this encounter
--- OUTSIDE RECORDS SUMMARY | 2025-05-04 13:12 | XMS_ITS | Clinical Summary ---
Author Organization [employer] Address 75 [facility] 7[address] [place] [address] Care Team Providers Care Job Service Consultant Name Role Phone Domi Maday Primary Care Provider [phone] Allergies Active Allergy Reactions Criticality Noted Date Comments Hydrochlorothiazide 05/17/2019 Other reaction(s): Hypokalemia Shellfish Allergy High 12/30/2022 Other reaction(s): swelling, can't breathe Shellfish Protein-Containing Drug Products 11/24/2018 Shrimp Extract 05/17/2019 Medications * This document contains information received from the source organization and may not represent a complete record from that organization. polyethylene glycol, PEG, 3350 (Glycolax) 17 GM/SCOOP powder Take 17 g by mouth 1 (one) time each day. Mix with 8oz. Water, juice, soda 01/15/20 22 Active sennosides (Senokot) 8.6 MG tablet Take 2 tablets by mouth if needed each day for constipation. 01/14/20 22 Active polycarbophil (FiberCon) 625 MG tablet Take 1 tablet by mouth in the morning and at bedtime. 01/14/20 22 Active docusate sodium (Colace) 100 MG capsule Take 1 capsule by mouth in the morning and at bedtime. 01/14/20 22 Active acetaminophen (Tylenol 8 Hour) 650 MG ER tablet Take 1 tablet by mouth every 8 (eight) hours. 01/14/20 22 Active montelukast (Singulair) 10 MG tabletIndicatio ns:Moderate persistent asthma without complication Take 1 tablet (10 mg) by mouth in the morning. 90 tablet 1 08/25/19 23 Active topiramate 50 MG tablet Take 1 tablet by mouth 2 times daily. 60 tablet 11 01/16/20 23 Active traZODone (Desyrel) 50 MG tablet Take 1-2 tablets (50-100 mg) by mouth if needed at bedtime for sleep. 60 tablet 2 01/16/20 23 Active EPINEPHrine (Epipen) 0.3 MG/0.3ML injection syringe INJECT CONTENTS OF 1 PEN NEEDED FOR ALLERGIC REACTION 06/16/20 Active Incruse Ellipta 62.5 MCG/ACT aerosol powder Inhale 1 puff in the morning. 01/11/20 23 Active famotidine (Pepcid) 40 MG tablet TAKE 1 TABLET BY MOUTH AT BEDTIME 90 tablet 3 01/16/20 23 Active omeprazole (PriLOSEC) [address] capsuleIndicati ons:Moderate persistent asthma without complication Take 1 capsule (20 mg) by mouth before breakfast and before evening meal. 180 capsule 3 01/22/20 23 Active baclofen (Lioresal) 10 MG tablet Take 1 tablet (10 mg) by mouth if needed in the morning, at noon, and at bedtime for muscle spasms. 60 tablet 3 03/18/20 23 Active Diclofenac Sodium 1 % gel Apply 2 g topically if needed in the morning, at noon, in the evening, and at bedtime (pain). 150 g 3 03/18/20 23 Active sertraline (Zoloft) 50 MG tablet Take 1 tablet (50 mg) by mouth in the morning. 30 tablet 2 07/27/19 25 Active hydrOXYzine HCl (Atarax) 50 MG tablet Take 1 tablet (50 mg) by mouth every 6 (six) hours if needed for anxiety. For anxiety 40 tablet 2 07/27/19 25 Active lisinopril 20 MG tablet TAKE 1 TABLET BY MOUTH IN THE MORNING 90 tablet 1 12/20/19 25 Active predniSONE (Deltasone) 20 MG tablet Take 3 tabs PO daily x 3 days then take 2 tabs PO daily x 3 days then take 1 tab PO daily x 3 days then take 1/2 tab daily x 3 days 20 tablet 12/26/19 25 Active fluticasone (Flonase) 50 MCG/ACT nasal spray Administer 2 sprays into each nostril Once per day. 16 g 11 12/26/19 25 Active loratadine (Claritin) 10 MG tablet Take 1 tablet (10 mg) by mouth Once per day. 30 tablet 11 12/26/19 25 2025 Active albuterol (Ventolin HFA) 108 (90 Base) MCG/ACT inhalerIndicati ons:Moderate persistent asthma without complication INHALE 2 PUFFS BY MOUTH EVERY 4 TO 6 HOURS NEEDED FOR COUGH, WHEEZE, OR SHORTNESS OF BREATH. 18 g 2 12/26/19 25 Active albuterol (2.5 MG/3ML) 0.083% nebulizer solution Take 3 mL by nebulization every 4 (four) hours if needed for wheezing or shortness of breath. 75 mL 2 12/26/19 25 Active meclizine (Antivert) 25 MG tablet TAKE 1 TABLET BY MOUTH IN THE MORNING, AT NOON AND AT BEDTIME NEEDED FOR DIZZINESS. 40 tablet 01/24/20 25 Active amLODIPine (Norvasc) 10 MG tabletIndicatio ns:Essential hypertension TAKE 1 TABLET BY MOUTH IN THE MORNING 90 tablet 1 04/05/20 25 Active amLODIPine (Norvasc) 10 MG tabletIndicatio ns:Essential hypertension TAKE 1 TABLET BY MOUTH IN THE MORNING 90 tablet 1 09/27/19 25 2024 Discontinued Active Problems Problem Noted Date Diagnosed Date Chronic heel pain, right 03/24/2024 Assessment & Plan (03/24/2024 2:33 PM EDT): XARY and podiatry referral Irritable bowel syndrome wit h both constipation and diarrhea 03/24/2024 Vertigo 01/15/2023 Chronic migraine 01/15/2023 Major depression, [...] Visit Other Anxiety Major depression, recurrent, chronic ([facility]) Patient ready to address current needs Yes Strengths include motivation to address mental health PLAN: 1. Follow up with [facility]: Not recommended for follow-up 2. Patient goal [...] 05/20/2016 Essential hypertension 05/20/2016 BMI 40.0-44.9, adult ([facility]) 05/20/2016 Obstructive sleep apnea 05/20/2016 Resolved Problems Problem Noted Date Diagnosed Date Resolved Date Easy bruising 03/24/2024 12/25/2024 Assessment & Plan (03/24/2024 2:33 PM EDT): CBC ordered patient will be contacted with result F/u with PCP Acute right ankle pain 03/24/202412/25 Assessment & Plan (03/24/2024 2:33 PM EDT): XRAY ordered patient will be contacted with results Acetaminophen PRN Ankle swelling 03/24/2024 12/25/2024 Severe obesity ([facility]) 01/15/2023 Skin tag 01/15/2023 12/25/2024 Asthma 12/30/2022 01/15/2023 Dyspnea on exertion 12/30/2022 01/16/20 Nausea and vomiting 12/30/2022 01/16/20 Encounters Date Type Department Care Team Description 05/04/2025 10:15 AM EST Office Visit [facility] MEDICINE [address] [place] [address] [phone] Jurcsak, Maday, DO Essential hypertension (Primary Dx); Major depression, recurrent, chronic (CMS/HCC); Moderate persistent asthma without complication; Chronic allergic rhinitis; Obstructive sleep apnea; Chronic GERD; Chronic constipation; Vertigo; Chronic migraine; Chest pain, unspecified type; Macromastia; Healthcare maintenance; Polyarthralgia 05/04/2025 Travel 05/03/2025 Travel 05/01/[address] [facility] WALK-IN CENTER [address] [place] [address] Maday Duron DO Chart Prep 04/27/2025 Patient Outreach [facility] [address] [place], [place] [phone] Maday Duron DO Pre-visit Planning (SDOH negative, Tobacco screening negative. ) 04/27/[address] [facility] MEDICINE [address] [place] [address] Maday Duron DO December recall 04/05/2025 Refill [facility] [address] [place], [place] [phone] Maday Duron DO Essential hypertension from Last 3 Months Immunizations Immunization Administration Dates Next Due Hep B, Unspecified [...] 16 05/04/2025 10:12 AM EST Oxygen Saturation 97% 12/25/2024 10:38 AM EDT Inhaled Oxygen Concentration - - Weight 122 kg (270 lb) 05/04/2025 10:12 AM EST Height 175.3 cm (5' 9 ) 05/04/2025 10:12 AM EST Body Mass Index 39.87 05/04/2025 10:12 AM EST Plan of Treatment Health Maintenance Due Date Last Done Comments Family Planning (PISQ) 1997 HPV Vaccines (1 - 3-dose series) 1997 Hepatitis B Vaccines (3 of 3 - 19+ 3-dose series) 10/21/2001 05/20/2001, 05/20/2001, 04/22/2001, Additional history exists Mammogram 02/16/2025 02/16/2023 COVID-19 Vaccine ( season) 2025 01/15/2022, 11/11/2020, 10/09/2020 Influenza Vaccine (#1) 2025 , 03/11/2022, 02/17/2020, Additional history exists Depression Monitoring 11/01/2025 05/04/2025, 025 SDOH Screening 04/27/2026 04/27/2025 Disability Screening 05/03/2026 05/03/2025 Alcohol/Substance Use Screening 05/04/2026 05/04/2025 Tobacco Screening 05/04/2026 05/04/2025 Lipid Panel 01/19/2028 01/18/2023, 02/12/2021 DTaP/Tdap/Td Vaccines (3 - Td or Tdap) 02/12/2031 02/12/2021, 06/11/2009 Zoster Vaccines (1 of 2) 2032 RSV Patients and Patients Aged 60 years or older (1 - 1-dose 75+ series) 2057 Pneumococcal Vaccine: Pediatrics (0 to 5 Years) and At-Risk Patients (6 to 49) Years Completed 10/08/2022, 08/02/2009 HIV Screening Completed 01/18/2023, [...] patient's age to complete this topic Meningococcal B Vaccine Aged Out No l onger eligible based on patient's age to complete [...] Procedure Name Priority Date/Time Associated Diagnosis Comments BI MAMMOGRAM SCREENING TOMOSYNTHESIS BILATERAL Routine 02/16/2023 11:59 AM EDT HEPATITIS C ANTIBODY REFLEX Routine 01/18/2023 11:54 AM EDT HIV ANTIBODY/ANTIGEN ([place] DPH) Routine 01/18/2023 11:54 AM EDT LIPID PANEL, STANDARD Routine 01/18/2023 11:54 AM EDT Essential hypertension from Last 3 Months or Most Recently Relevant to Health Maintenance Results * BI Mammogram Screening Tomosynthesis Bilateral (02/16/2023 11:59 AM EDT) Anatomical Region Laterality Modality Breast Bilateral Mammography 02/16/2023 11:5 9 AM EDT Narrative 03/02/2023 3:41 PM EDT [facility] [address] [place] [address] Mammography Report Signed Patient: Adelaide Dawkins MR#: [id number] [birth year] : 1980 Acct:[id number] Age/Sex: 42 / F ADM Date: 02/16/23 Loc: HO.MAMMO Attending Dr: Maday Duron DO Ordering Physician: Maday Duron DO Results: 1N egative Date of Service: 02/16/23 Follow Up: 1 Year From Orig ina Mammogram Procedure(s): MM tomosynthesis screening BI Accession Number(s): [id number] cc: Maday Duron DO EXAMINATION: MM SCREENING [...] in OV> 03/02/23 1537 DD/ 1159 TD/TT: Financial Compliance Officer: Procedure Note Donotuseinterpreter, Image - 03/02/2023 [facility] [address] [place] [address] Mammography Report Signed Patient: Cathleen DawkinsR#: [id number] 27 : 1980Acct:[id number] Age/Sex: 42 / FADM Date: 02/16/23 Loc: HO.MAMMO Attending Dr: Maday Duron DO Ordering Physician: Maday Duron DOResults: 1N egative Date of Service: 02/16/23Follow Up: 1 Year From Orig ina Mammogram Procedure(s): MM tomosynthesis screening BI Accession Number(s): [id number] cc: Maday Duron DO EXAMINATION: MM SCREENING [...] in OV> 03/02/23 1537 DD/ 1159 TD/TT: Financial Compliance Officer: Maday Duron DO IMG BI PROCEDURES Final Resu lt * Hepatitis C Antibody Reflex (01/18/2023 11:54 AM EDT) Hepatitis C Antibody Nonreactive Nonreactive [facility] Comment:Antibodies to HCV no t detected; does not exclude early acuteHCV infection. 01/18/2023 11:5 4 AM EDT 01/19/2023 5:30 AM EDT Maday Duron DO LAB BLOOD ORDERABLES Final R esult [facility] [address] [place] [phone] * HIV Ab/Ag ([facility]) (01/18/2023 11:54 AM EDT) HIV AB/AG Nonreactive Nonreactive [facility] Comment:HIV-1 p24 Ag and/or HIV-1/HIV-2 Ab not detected.A test result that is nonreactive does not exclude thepossibility of exposure to or infection with HIV-1 and/orHIV-2. Nonreactive results in this assay for individualswith prior exposure to HIV-1 and/or HIV-2 may be due toantigen and antibody levels that are below the limit ofdetection of this assay.The [employer] HIV Ag/Ab Combo assay result andsupplemental assay results should be interpreted inconjunction with the patient's clinical presentation,history and other laboratory results. If the results areinconsistent with clinical evidence, additional testing issuggested to confirm the result. 01/18/2023 11:5 4 AM EDT 01/18/2023 1:06 PM EDT Maday Duron DO LAB BLOOD ORDERABLES Final R esult Performing Organization Address [facility] Co de Phone Number [facility] [address] [place] [phone] * Lipid Panel, Standard (01/18/2023 11:54 AM EDT) Triglycerides 129 mg/dL [facility] Comment:Desirable Triglyceri de: less than 150 mg/dLBorderline High Triglyceride 150-199 mg/dLHigh Triglyceride: 200-499 mg/dLVery High Triglyceride: greater than or equal to 5OO mg/dL Cholesterol 203 mg/dL [facility] Comment:Desirable Cholestero l: less than 200 mg/dLBorderline High Cholesterol: 200-239 mg/dLHigh Cholesterol: greater than 239 mg/dL LDL Cholesterol Calculated 137 mg/dl [facility] Comment:Desirable LDL: less than 100 mg/dLNear Optimal/Above Optimal LDL: 110- 129 mg/dLBorderline High LDL: 130-159 mg/dLHigh LDL: 160-189 mg/dLVery High LDL: greater than or equal to 190 mg/dL HDL Cholesterol 41 mg/dL [facility] Comment:Desirable HDL: great er than 40 mg/dL Note: This HDL assay may give artificially low results in patients with liver disease. Blood Venous blood specimen / Unknown 01/18/2023 11:54 AM EDT 01/18/2023 1:06 PM EDT Maday Duron DO LAB BLOOD ORDERABLES Final R esult Performing Organization Address [facility] Co de Phone Number [facility] [address] [place] [address] [phone] from Last 3 Months or Most Recently Relevant to Health Maintenance Insurance [employer] PPO Care Teams Job Service Consultant Relationship Specialty Start Date End Date Maday Duron DO [address] [place] [phone] PCP - General Family Medicine 06/28/18
--- OUTSIDE RECORDS SUMMARY | 2025-05-04 13:12 | XMS_ITS | Encounter Summary ---
Author Organization [employer] Address [address] [facility] 7t [place] [address] Care Team Providers Care Bus Driver School Name Role Phone Maday Duron DO Primary Care Provider + [phone] Reason for Visit * Reason Comments Med Refill Encounter Details Date Type Department Care Team ([facility] st Contact Info) Description 01/10/2025 Refill [facility] [address] [place], [place] [phone] Maday Duron DO [address] [place], [place] [phone] Essential hypertension Social History Tobacco Use Types [...] documented as of this encounter Care Teams Bus Driver School Relationship Specialty Start Date End Date Maday Duron DO [address] [place] [phone] PCP - General Family Medicine 06/28/18 documented as of this encounter
--- OUTSIDE RECORDS SUMMARY | 2025-05-04 13:12 | XMS_ITS | Encounter Summary ---
Author Organization [employer] Address [address] [facility] [address] [place] [address] Care Team Providers Care Oil Field Worker Name Role Phone Maday Duron DO Primary Care Provider + [phone] Reason for Visit * Reason Comments Med Refill Encounter Details Date Type Department Care Team ([facility] st Contact Info) Description 01/10/2023 Refill [facility] [address] [place] [address] Pierce Gill FNP Social History Tobacco Use [...] documented as of this encounter Care Teams Oil Field Worker Relationship Specialty Start Date End Date Maday Duron DO [address] [place] [address] PCP - General Family Medicine 06/28/18 documented as of this encounter
--- OUTSIDE RECORDS SUMMARY | 2025-05-04 13:12 | XMS_ITS | Encounter Summary ---
Author Organization [employer] Address [address] [facility] [address]t [place] [address] Care Team Providers Care Meter And Service Line Inspector Name Role Phone JosefinaMaday cormier Primary Care Provider + [phone] Reason for Visit * Reason Comments Med Refill Encounter Details Date Type Department Care Team ([facility] st Contact Info) Description 09/25/2024 Refill [facility] [address] [place], [place] [phone] Carlos Enrique Mariee MD [address] [place] [address] Moderate persistent asthma with acute exacerbation Social History Tobacco Use Types Packs/Day Years [...] encounter Visit Diagnoses Diagnosis Moderate persistent asthma with acute exacerbation documented in this encounter Additional Health Concerns Assessment Noted Time PHQ-9 Depression Total Score: 21 023 1:49 PM EDT documented as of this encounter Care Teams Meter And Service Line Inspector Relationship Specialty Start Date End Date Maday Duron DO [address] [place] [address] PCP - General Family Medicine 06/28/18 documented as of this encounter
--- OUTSIDE RECORDS SUMMARY | 2025-05-04 13:12 | XMS_ITS | Encounter Summary ---
Author Organization [employer] Address [address] [place] [address] Care Team Providers Care Deicer Element Winder Machine Name Role Phone VladimirMaday silva Primary Care Provider + [phone] Encounter Details Date Type Department Care Team (Latest Contact Info) Description 05/04/2025 Travel Social History Tobacco Use Types Packs/Day Years [...] AM EDT documented as of this encounter Functional Status * Over the past 2 weeks, how often have you been bothered by any of the following problems? Question Answer Date of Assessment Author Patient Health Questionnaire -2 Score 3 05/04/2025 10:57 AM Jing Gunter [place] * Little interest or pleasure in doing things Answer Date of Assessment Author Several days 05/04/2025 10:57 AM Jing Gunter [place] * Feeling down, depressed, or hopeless [...] co ntrol worrying 3 05/04/2025 10:56 AM iJng Gunter [place] Worrying too much about diff [...] documented as of this encounter Care Teams Deicer Element Winder Machine Relationship Specialty Start Date End Date Maday Duron DO [address] [place] [address] PCP - General Family Medicine 06/28/18 documented as of this encounter
--- OUTSIDE RECORDS SUMMARY | 2025-05-04 13:12 | XMS_ITS | Encounter Summary ---
Author Organization [employer] Address [address] [facility] [address] [place] [address] Care Team Providers Care Work Order Clerk Name Role Phone Maday Duron DO Primary Care Provider + [phone] Reason for Visit * Reason Onset Date Comments Chart Prep 05/01/2025 Encounter Details Date Type Department Care Team ([facility] st Contact Info) Description 05/01/2025 Telephone [facility] [address] [place], [place] [phone] Maday Duron DO [address] [place], [place] [phone] Chart Prep Social History Tobacco Use Types Packs/Day Years [...] Recorded Patient Health Questionnaire-2 Score 6 01/18/2023 Internet Access Answer Date Recorded Internet Access [...] encounter Miscellaneous Notes * Telephone Encounter - Jing Og [place] - 05/01/2025 4:51 PM EST Chart Prep Labs: done Images: not done-Chest Xray Referrals: not applicable Vaccines due: Covid, Flu, Hep B, and HPV Screenings: mammogram, LMP, and PISQ Overdue care gaps: SBIRT, PHQ-9, LUZ-7, and Disability screen documented in this encounter Plan of Treatment Not on file documented as of this encounter Visit Diagnoses Not on filedocumented in this encounter Additional Health Concerns Assessment Noted Time PHQ-9 Depression Total Score: 21 023 1:49 PM EDT documented as of this encounter Care Teams Work Order Clerk Relationship Specialty Start Date End Date Maday Duron DO [address] [place] [address] PCP - General Family Medicine 06/28/18 documented as of this encounter
--- OUTSIDE RECORDS SUMMARY | 2025-05-04 13:12 | XMS_ITS | Encounter Summary ---
Author Organization [employer] Address [address] [facility] [address] [place] [address] Care Team Providers Care Digital Project Manager Name Role Phone Maday Duron DO Primary Care Provider [phone] Reason for Visit * Reason Comments Med Refill Encounter Details Date Type Department Care Team ([facility] st Contact Info) Description 01/10/[address] [facility] MEDICINE [address] [place], [place] [phone] Heather Christianson MD [address] [place] [address] Moderate persistent asthma without complication Social History [...] documented as of this encounter Care Teams Digital Project Manager Relationship Specialty Start Date End Date Maday Duron DO [address] [place] [id number] PCP - General Family Medicine 06/28/18 documented as of this encounter
--- OUTSIDE RECORDS SUMMARY | 2025-05-04 13:12 | XMS_ITS | Encounter Summary ---
Author Organization [employer] Address [address] [facility] [address] [place] [address] Care Team Providers Care Circuits Engineer Name Role Phone VladimirMaday silva Primary Care Provider + [phone] Encounter Details Date Type Department Care Team (Latest Contact Info) Description 05/03/2025 Travel Social History Tobacco Use Types Packs/Day [...] documented as of this encounter Care Teams Circuits Engineer Relationship Specialty Start Date End Date Maday Duron DO [address] [place] [address] PCP - General Family Medicine 06/28/18 documented as of this encounter
--- OUTSIDE RECORDS SUMMARY | 2025-05-04 13:12 | XMS_ITS | Encounter Summary ---
Author Organization [employer] Address [address] [facility] [address] [place] [address] Care Team Providers Care Bed And Breakfast Cook Name Role Phone Maday Duron DO Primary Care Provider + [phone] Reason for Visit * Reason Comments Med Refill Encounter Details Date Type Department Care Team ([facility] st Contact Info) Description 03/16/2024 Refill [facility] MEDICINE [address] [place], [place] [phone] Maday Duron DO [address] [place] [address] Essential hypertension Social History Tobacco Use Types [...] documented as of this encounter Care Teams Bed And Breakfast Cook Relationship Specialty Start Date End Date Maday Duron DO [address] [place] [id number] PCP - General Family Medicine 06/28/18 documented as of this encounter
== END 2025-05-04 10:59 | disposition home or self-care (01) ==
LOC: HO.HHCX 10:58
PROVIDERS: PCP Family Medicine; Visit Provider Family Medicine
DX: Z13.89 Encounter for screening for other disorder (principal)